=== PATIENT | female | born 1945 | race Hispanic/Latino ===

== ENCOUNTER 2019-11-03 18:39 | Emergency (ER) | payer MEDICARE, OTHER ==
[~2019-11-03] VITALS: Ht 162.6 cm; Wt 97.5 kg
[~2019-11-03 18:39] MED LIST: Aspirin PO; ENALAPRIL PO; HEMOCYTE PLUS1 EACH PO; HYDROCHLOROTHIA25 MG PO; LEXAPRO10 MG PO; NORCO 7.5-3251 EACH PO; SULFASALAZINE500 MG PO
--- OUTSIDE RECORDS SUMMARY | 2019-11-03 18:43 | XMS REPORT ---
[facility] Address Unknown Phone Unavailable Care Team Providers Care Mineral Surveyor Name Role Phone Unavailable Unavailable Payers Payer Name Policy Type Policy Number Effective Date Expiration Date Problems This patient has no known problems. Allergies, Adverse Reactions, Alerts Allergy Name Allergy Type Status Severity Reaction(s) Onset Date Inactive Date Treating Clinician Comments No Known Allergies DA Active U 2013-02-19 00:00:00 Medications This patient has no known medications. Results Test Description Test Time Test Comments Text Results Atomic Results Result Comments FECES OVA PARASITES 2019-01-03 14:11:00 CONCENTRATE RESULT (test code=CONC) Final report () These results were obtained using wet preparation(s) andtrichrome stained smear. This test does not include testingfor Cryptosporidium parvum, Cyclospora, or Microsporidia. TRICHROME RESULT (test code=TRIC) [id number] GIARDIA [id number] 14:11:00* Test Item Value Reference Range Comments AG GIARDIA FECES (test code=GIARDAG) Negative Negative Performed At: [facility] [address] [id number] Kyle L MD Ph:[phone] 1141FECES OVA [id number] 14:11:00* Test Item Value Reference Range Comments CONCENTRATE RESULT (test code=CONC) Final report () These results were obtained using wet preparation(s) andtrichrome stained smear. This test does not include testingfor Cryptosporidium parvum, Cyclospora, or Microsporidia. TRICHROME RESULT (test code=TRIC) () No ova, cysts, or parasites seen.One negative specimen does not rule out the possibility ofa parasitic infection.Performed At: [facility] [address] [id number] Dupree MD Ph:[phone] 1141AG GIARDIA [id number] 14:11:00* Test Item Value Reference Range Comments AG GIARDIA FECES (test code=GIARDAG) Negative Negative Performed At: [facility] [id number] Dupree MD Ph:[phone] 1141FECES OVA [id number] 16:09:00* Test Item Value Reference Range Comments CONCENTRATE RESULT (test code=CONC) TRICHROME RESULT (test code=TRIC) 1141AG GIARDIA [id number] 16:09:00* Test Item Value Reference Range Comments AG GIARDIA FECES (test code=GIARDAG) Negative Negative Performed At: [facility] [address] [id number] Dupree MD Ph:[phone] 1141
[2019-11-03] MEDS ORDERED: KETOROLAC TROMETHAMINE 30 MG/ML VIAL IM STA (19:49)
[2019-11-03 21:17] VITALS: BP 148/77
== END 2019-11-03 21:18 | disposition home or self-care (01) ==
LOC: ER 18:39
DX: M54.32 Sciatica, left side (principal); I10 Essential (primary) hypertension; Z96.641 Presence of right artificial hip joint
CPT/HCPCS: 96372; 99282; J1885

== ENCOUNTER 2019-12-27 11:57 | Emergency (ER) | payer MEDICARE ==
[~2019-12-27] VITALS: Ht 162.6 cm; Wt 97.5 kg
--- OUTSIDE RECORDS SUMMARY | 2019-12-27 12:01 | XMS REPORT | Continuity of Care Document ---
Author Author [facility] t Organization [facility] Address [address] [place] [address] Phone Unavailable Care Team Providers Care Education Professor Name Role Phone Unavailable Unavailable Payers Payer Name Policy Type Policy Number Effective Date Expiration Date S ource Problems This patient has no known problems. Allergies, Adverse Reactions, Alerts Allergy Name Allergy Type Status Severity Reaction(s) Onset Date Inacti ve Date Treating Clinician Comments Source No Known Allergies DA Active U 2013-02-19 00:00:00 [facility] Medications This patient has no known medications. Procedures This patient has no known procedures. Results Test Description Test Time Test Comments Results Result Comments Source FECES OVA PARASITES 2019-01-03 14:11:00 Test Item CONCENTRATE RESULT (test code = CONC) Final report () These results were obtained using wet preparation(s) andtrichrome stained smear. This test does not include testingfor Cryptosporidium parvum, Cyclospora, or Microsporidia. TRICHROME RESULT (test code = TRIC) [id number] GIARDIA [id number] 14:11:00* Test Item Value Reference Range Interpretation Comments AG GIARDIA FECES (test code = GIARDAG) Negative Negative Performed At: [facility] [address] [id number] Cody Dupree MD Ph:[phone] 1141FECES OVA [id number] 14:11:00* Test Item Value Reference Range Interpretation Comments CONCENTRATE RESULT (test code = CONC) Final report () These results were obtained using wet preparation(s) andtrichrome stained smear. This test does not include testingfor Cryptosporidium parvum, Cyclospora, or Microsporidia. TRICHROME RESULT (test code = TRIC) () No ova, cysts, or parasites seen.One negative specimen does not rule out the possibility ofa parasitic infection.Performed At: [address] [id number] Dupree MD Ph:[phone] 1141AG GIARDIA [id number] 14:11:00* Test Item Value Reference Range Interpretation Comments AG GIARDIA FECES (test code = GIARDAG) Negative Negative Performed At: [address] [id number] Dupree MD Ph:[phone] 1141FECES OVA [id number] 16:09:00* Test Item Value Reference Range Interpretation Comments CONCENTRATE RESULT (test code = CONC) TRICHROME RESULT (test code = TRIC) 1141AG GIARDIA [id number] 16:09:00* Test Item Value Reference Range Interpretation Comments AG GIARDIA FECES (test code = GIARDAG) Negative Negative Performed At: [address] [id number] Dupree MD Ph:[phone] 1141
--- NOTE | 2019-12-27 12:37 | Emergency Department Note ---
History of Present Illnes History of Present Illness Chief Complaint: Chest Pain History of Present Illness This is a 74 year old female arrives the ED with an abnormal EKG, patie nt denies any complaints. Patient was getting a preop testing done for procedure. Patient states she wishes to go home has no chest pain has no shortness of breath has no complaints and does not understand why she was brought to the emergency department Historian: Patient Arrival Mode: Car Past Medical/Family History Physician Review I have reviewed the patient's past medical and family history. Any updates have been documented here. Past Medical History Recent Fever: No Clinical Suspicion of Infectio: No New/Unexplained Change in Ment: No Past Medical History: Hypertension, Depression, Osteoarthritis Past Surgical History: Appendectomy, Hysterectomy, Hip Replacement Other Surgery: RIGHT HIP REPLACEMENT Social History Smoking Cessation: Never Smoker Counseling Performed: No Alcohol Use: None Any Illegal Drug Use: No TB Exposure/Symptoms: No Physically hurt or threatened: No Family History Family history of heart diseas: No Other Last Tetanus: UNKNOWN Any Pre-Existing Lines (PICC,: No Is patient up to date on immun: Yes Last Flu: OOD Last Pneumovax: NA Review of Systems Review of Systems Constitutional: no symptoms EENTM: no symptoms Cardiovascular: no symptoms Respiratory: no symptoms Gastrointestinal: no symptoms Genitourinary: no symptoms Musculoskeletal: no symptoms Neurological: no symptoms Psychological: no symptoms Endocrine: no symptoms Hematological/Lymphatic: no symptoms Review of other systems All other systems reviewed and negative. Physical Exam Related Data Allergies: Coded Allergies: No Known Allergies (Unverified , 11/03/19) Triage Vital Signs Vital Signs Date Time Temp Pulse Resp B/P (MAP) Pulse Ox O2 Delivery O2 Flow Rate FiO2 12/27/19 12:13 96.1 83 16 151/92 96 Vital signs reviewed: Yes Physical Exam CONSTITUTIONAL HENT EYES NECK PULMONARY CARDIOVASCULAR GASTROINTESTINAL GENITOURINARY SKIN MUSCULOSKELETAL NEUROLOGICAL PSYCHOLOGICAL Procedures 12 Lead ECG Interpretation Prior ENGINE DESIGNER tracings: reviewed Rhythm: sinus rhythm Rate: normal Conduction: right bundle branch block ST segments normal: No (T wave inversions in the inferior lateral leads unchanged from prior KG) Clinical Impression: non-specific ECG Critical Care Time Subsequent provider I assumed direction of critical care for this patient from another provider of my specialty. Assessment & Plan Assessment & Plan Final Impression: (1) ABNORMAL ELECTROCARDIOGRAM [ECG] [EKG] Assessment & Plan EKG unchanged from prior, followed with outpatient PCP for further workup Depart Disposition: HOME, SELF-CARE Last Vital Signs Date Time Temp Pulse Resp B/P (MAP) Pulse Ox O2 Delivery O2 Flow Rate FiO2 12/27/19 12:13 96.1 83 16 151/92 96 Home Meds Active Scripts [Aspirin] 325 MG TAB No Conflict Check, 325 MG PO BIDWM for 21 Days Prov:JANESSA CUMMINS 04/05/16 Reported Medications Fe Fumarate/Fa/Mv, Min Comb#15 (HEMOCYTE PLUS CAPSULE) 1 Each Capsule, 1 TAB PO DAILY 04/06/16 Hydrocodone Bit/Acetaminophen (NORCO 7.5-325 TABLET) 1 Each Tablet, 1 EA PO Q4HR PRN for PAIN, TAB 04/06/16 Sulfasalazine (SULFASALAZINE) 500 Mg Tab, 500 MG PO Q6H, #30 TAB 02/05/16 Escitalopram Oxalate (LEXAPRO) 10 Mg Tablet, 10 MG PO DAILY, #30 TAB 02/05/16 [Enalapril] No Conflict Check, 20 MG PO DAILY 02/05/16 Hydrochlorothiazide (HYDROCHLOROTHIAZIDE) 25 Mg Tablet, 12.5 MG PO DAILY, #30 TAB 02/05/16 VALERIA WOLF DO Dec 27, 2019 12:21
== END 2019-12-27 12:45 | disposition home or self-care (01) ==
LOC: ER 11:57
DX: R94.31 Abnormal electrocardiogram [ECG] [EKG] (principal); I10 Essential (primary) hypertension; F32.9 Major depressive disorder, single episode, unspecified; Z96.641 Presence of right artificial hip joint
CPT/HCPCS: 93005; 99282

== ENCOUNTER 2020-01-14 07:25 | Observation (INO) | payer MEDICARE, OTHER ==
--- NOTE | 2020-01-10 14:49 | Diagnostic Imaging Report ---
EXAMINATION: CHEST 2 VIEWS INDICATION: Pre-operative COMPARISON: None FINDINGS: LINES/TUBES:None LUNGS:The lungs are well-inflated. No focal consolidation or pulmonary edema. PLEURA:No pleural effusion or pneumothorax. MEDIASTINUM:The cardiomediastinal silhouette appears normal in size and shape. BONES/SOFT TISSUES:No acute osseous injury. ABDOMEN:No free air under the diaphragm. IMPRESSION: No focal pneumonia or pulmonary edema. Signed by: Randa Bravo MD on 01/10/2020 2:45 PM
[2020-01-10 15:02] LABS: BASOPHILS # (AUTO) 0.1 (0.0-0.1); BASOPHILS % 0.8 % (0.0-1.0); EOSINOPHILS # (AUTO) 0.2 (0.0-0.4); EOSINOPHILS % 1.4 % (0.0-6.0); HEMATOCRIT 31.9 % (34.2-44.1); HEMOGLOBIN 10.5 g/dL (12.0-16.0); LYMPHOCYTES # (AUTO) 1.7 (1.0-3.2); LYMPHOCYTES % 14.9 % (18.0-39.1); MEAN CORPUSCULAR HEMOGLOBIN 30.2 pg (28-32); MEAN CORPUSCULAR HGB CONC 32.9 g/dL (31-35); MEAN CORPUSCULAR VOLUME 91.7 fL (81-99); MONOCYTES # (AUTO) 0.8 (0.2-0.8); MONOCYTES % 7.3 % (4.4-11.3); NEUTROPHILS # (AUTO) 8.5 (2.1-6.9); NEUTROPHILS % 74.9 % (38.7-80.0); PLATELET COUNT 318 x10e3/uL (140-360); RED BLOOD COUNT 3.48 x10e6/uL (3.6-5.1); RED CELL DISTRIBUTION WIDTH 13.3 % (11.7-14.4)
[2020-01-10 16:09] LABS: ANION GAP 11.6 mmol/L (8-16); CALCIUM 8.5 mg/dL (8.4-10.2); CREATININE, SERUM 1.82 mg/dL (0.57-1.11); POTASSIUM 3.6 mmol/L (3.5-5.1)
[~2020-01-14] VITALS: Ht 157.5 cm; Wt 92.1 kg
[~2020-01-14 07:25] MED LIST changes: +HYDROXYCHLOROQ200 MG PO; +LEFLUNOMIDE10 MG PO; +OMEPRAZOLE40 MG PO; +PREDNISONE5 MG PO
[2020-01-14] MEDS ORDERED: ROPIVACAINE 246.25 MG, EPINEPHRINE HCL 1:1000 1ML 0.5 MG, CLONIDINE HCL 0.08 MG, KETORO... INJ ONE ×5 (08:00)
[2020-01-14] MEDS ORDERED: CELECOXIB 200 MG CAP ONE (08:45)
[2020-01-14] MEDS ORDERED: DEXAMETHASONE SOD PHOS 10 MG/1 ML VIAL ONE (08:45)
[2020-01-14] MEDS ORDERED: GABAPENTIN 300 MG CAP ONE (08:46)
[2020-01-14] MEDS ORDERED: CEFAZOLIN SOD 1 GM/NS 50ML 100 ML IV ONE (09:16)
[2020-01-14] MEDS ORDERED: BACITRACIN 50,000 UNIT VIAL ONE (09:47)
[2020-01-14] MEDS ORDERED: VANCOMYCIN HCL 500 MG ONE ×2 (09:48→11:22)
[2020-01-14] MEDS ORDERED: TRANEXAMIC ACID 1,000 MG/10 ML ML ONE (09:49)
[2020-01-14] MEDS ORDERED: SODIUM CHLORIDE 0.9% 500ML 500 ML ONE (09:49)
[2020-01-14] MEDS ORDERED: KETOROLAC TROMETHAMINE 30 MG/ML VIAL IV PRN (12:15)
[2020-01-14] MEDS ORDERED: DOCUSATE SODIUM 100 MG CAP PO PRN (12:15)
[2020-01-14] MEDS ORDERED: ZOLPIDEM TARTRATE 5 MG TAB PO PRN (12:15)
[2020-01-14] MEDS ORDERED: HYDROCODONE/APAP 5MG-325MG TAB PO PRN (12:15)
[2020-01-14] MEDS ORDERED: DIPHENHYDRAMINE HCL INJ 50 MG/ML VIAL IV PRN (12:15)
[2020-01-14] MEDS ORDERED: ONDANSETRON HCL INJ 2MG/ML 2ML 2 MG/ML VIAL IV PRN (12:15)
[2020-01-14] MEDS ORDERED: ACETAMINOPHEN 650 MG SUPP PR PRN (12:15)
[2020-01-14] MEDS ORDERED: MEPERIDINE HCL INJ 25 MG/ML VIAL ONE (12:45)
--- NOTE | 2020-01-14 12:59 | Diagnostic Imaging Report ---
EXAMINATION: PELVIS AP 1-2 VIEWS INDICATION: Postoperative COMPARISON: Pelvic radiographs 04/04/2016 FINDINGS: AP view of the pelvis demonstrates postoperative findings of interval left total hip replacement. Alignment appears anatomic. Hardware appears intact. Surgical skin horace over the upper lateral left thigh. IMPRESSION: Anatomic alignment status post left total hip replacement. Signed by: Rnada Bravo MD on 01/14/2020 12:56 PM
--- NOTE | 2020-01-14 13:00 | NUR ---
RECEIVED PATIENT FROM PACU. PATIENT A/O X3, EVEN RESPIRATIONS ON RA. LUNG SOUNDS CLEAR. LEFT HIP DRESSING C/D/I. ABDUCTOR PILLOW IN PLACE. RIGHT SU HOSE IN PLACE AND FOOT PUMPS BILATERAL. PATIENT DENIES PAIN AT THIS TIME. ORIENTED PATIENT TO ROOM AND CALL LIGHT. BED LOW, WHEELS LOCKED, SIDE RAILS X2. CALL LIGHT IN REACH WILL CONTINUE TO MONITOR PATIENT.
[2020-01-14 13:16] VITALS: BP 94/79
[2020-01-14 13:39] VITALS: BP 94/79
[2020-01-14 13:45] VITALS: BP 94/79
[2020-01-14] MEDS ORDERED: MIDAZOLAM HCL 2 MG/2 ML VIAL ONE (14:13)
[2020-01-14] MEDS ORDERED: FENTANYL CITRATE/PF 100MCG/2 ML INJ ONE (14:13)
[2020-01-14] MEDS: SODIUM CHLORIDE 0.9% 1000ML 1,000 ML IV SCH ×2 (14:46→23:57)
--- NOTE | 2020-01-14 14:48 | NUR ---
DR SEWELL OFFICE PREARRANGED FOLLOWING DISCHARGE PLAN OF: HOME [address], [facility] WITH SIGNATURE CONFIRMED WITH AMANDA [phone] PT REFUSED DME STATES HAS ALL FROM PRIOR SURGERY. LEOBARDO SIGNED AND ON CHART COPY LEFT WITH PATIENT GAVE CARD FOR QUESTIONS AND OR CONCERNS. `
--- NOTE | 2020-01-14 16:10 | NUR ---
PATIENT HAS VOIDED SINCE SURGERY.
[2020-01-14 16:20] VITALS: BP 117/61
[2020-01-14] MEDS: CELECOXIB 200 MG CAP PO SCH (16:48)
[2020-01-14] MEDS: CEFAZOLIN SOD 1 GM/NS 50ML 50 ML IV SCH (16:48)
[2020-01-14] MEDS: HYDROCODONE/APAP 7.5MG-325MG 1 EA TAB PO PRN ×2 (17:47→21:43)
[2020-01-14] MEDS ORDERED: ACETAMINOPHEN 1000 MG/100 ML IV ONE (18:39)
[2020-01-14] MEDS ORDERED: LIDOCAINE HCL 2% LOCAL INJ 5 ML SDV VIAL INJ ONE (18:39)
[2020-01-14] MEDS ORDERED: SEVOFLURANE INHAL SOLN 250 ML PEN BTL ONE (18:39)
[2020-01-14] MEDS ORDERED: PROPOFOL IV EMULSION 10 MG/ML 20 ML VIAL ONE (18:39)
[2020-01-14] MEDS ORDERED: ONDANSETRON HCL INJ 2MG/ML 2ML 2 MG/ML VIAL ONE (18:39)
[2020-01-14] MEDS ORDERED: BUPIVACAINE HCL 0.5% INJ 30 ML VIAL INJ ONE (18:56)
[2020-01-14 20:00] VITALS: BP 125/63
[2020-01-14] MEDS: ASPIRIN 325 MG TAB PO SCH (20:38)
[2020-01-15] VITALS: BP 137/71
[2020-01-15] MEDS: CEFAZOLIN SOD 1 GM/NS 50ML 50 ML IV SCH ×2 (01:35→09:04)
[2020-01-15 04:00] VITALS: BP 135/73
[2020-01-15 05:26] LABS: HEMATOCRIT 26.1 % (34.2-44.1); HEMOGLOBIN 8.4 g/dL (12.0-16.0)
[2020-01-15] MEDS: HYDROCODONE/APAP 7.5MG-325MG 1 EA TAB PO PRN (06:34)
--- NOTE | 2020-01-15 07:05 | NUR ---
REPORT GIVEN TO [facility] NURSE. AAOX3. RESTING IN BED. NO SIGNS OF IV INFILTRATION. BED LOCKED AND IN LOW POSITION. CALL LIGHT WITHIN REACH.
[2020-01-15 07:25] VITALS: BP 133/72
--- NOTE | 2020-01-15 07:30 | NUR ---
PT UP IN BED NO DISTRESS NOTED,PAIN LEVEL 3
--- NOTE | 2020-01-15 08:12 | NUR ---
[facility] NOT IN NETWORK-[facility] WILL COVER THE REFERRAL
--- NOTE | 2020-01-15 08:15 | NUR ---
PHYSICAL THERAPY HERE AMBULATED PT IN [place] WITH WALKER
[2020-01-15 08:53] VITALS: BP 133/72
[2020-01-15] MEDS: ASPIRIN 325 MG TAB PO SCH (08:54)
[2020-01-15] MEDS: CELECOXIB 200 MG CAP PO SCH (08:54)
[2020-01-15] MEDS ORDERED: ONDANSETRON HCL 4 MG ORAL DISINTEGRATING TAB PO PRN (09:00)
[2020-01-15] MEDS ORDERED: PREDNISONE 5 MG TAB PO SCH (09:00)
[2020-01-15] MEDS ORDERED: HYDROXYCHLOROQUINE SULFATE 200 MG TAB PO SCH (09:00)
[2020-01-15] MEDS ORDERED: HYDROCHLOROTHIAZIDE 25 MG TAB PO SCH (09:00)
[2020-01-15] MEDS ORDERED: PANTOPRAZOLE SOD 40 MG TABEC PO SCH (09:00)
[2020-01-15] MEDS ORDERED: ESCITALOPRAM OXALATE 10 MG TAB PO SCH (09:00)
--- NOTE | 2020-01-15 09:20 | Consultation ---
DATE OF CONSULTATION: 01/14/2020 PRIMARY CARE PHYSICIAN: Allan Grady MD. REASON FOR CONSULTATION: The patient is status post left total knee replacement. HISTORY OF PRESENT ILLNESS: The patient is a 74-year-old female with chronic medical problems including hypertension, osteoarthritis, major depression, rheumatoid arthritis, and multiple joint pain. The patient is now status post left total hip replacement. The patient is otherwise stable. She had multiple surgical interventions previously. The patient has left carpal tunnel surgery. She also has left radius bone surgery with ulnar autograft, otherwise unremarkable. The patient was having increase in both hip pain, worse on the left compared to the right. She is status post surgery now and she is stable. The patient is ambulatory. No chest pain or shortness of breath. PAST MEDICAL HISTORY: Hypertension, osteoarthritis, rheumatoid arthritis, major depression, anxiety disorder, history of kidney stone removal. PAST SURGICAL HISTORY: Tubal ligation, left radius surgery, bone graft. Tonsillectomy, hysterectomy, appendectomy, renal stone removal. Left breast tumor benign, so that were removed. Left wrist carpal tunnel surgery. She also has right hip replacement. SOCIAL HISTORY: The patient does not smoke or use alcohol. No regular drug. ALLERGIES: NO KNOWN ALLERGIES. HOME MEDICATIONS: The patient is on: 1. Lexapro. 2. HCTZ. 3. Plaquenil. 4. Arava. 5. Omeprazole. 6. Prednisone. 7. Enalapril. PHYSICAL EXAMINATION: VITAL SIGNS: Temperature is 98, blood pressure 133/73, pulse rate 60, respirations 18. GENERAL: The patient is not in acute distress, awake. HEENT: Normocephalic and atraumatic. Anicteric. NECK: Supple grossly. PULMONARY: Clear. CARDIOVASCULAR: Regular rhythm. ABDOMEN: Soft. EXTREMITIES: No cyanosis or edema. Status post left hip replacement NEUROLOGIC: No focal deficit. LABORATORY DATA: Sodium is 133, potassium 3.6, chloride 101, bicarb 24, BUN 24, creatinine 1.6, glucose 90. WBC 11, hemoglobin 8.4, hematocrit 26, platelets is 318. IMPRESSION: 1. Status post total left hip replacement. 2. Multiple chronic baseline problems including rheumatoid arthritis, on chronic prednisone. Hypertension and depression, which are stable. PLAN: Continue with postop care. Discontinue IV fluids. Pain control. PT/OT. The patient should be able to go home within 24-48 hours. MD YUMIKO Lees/KRISS /[id number]
--- NOTE | 2020-01-15 11:11 | Operative Report ---
DATE OF PROCEDURE: 01/14/2020 SURGEON: Robert Vigil MD COOK PICKLED MEAT: Jeffry Norwood PA-C PREOPERATIVE DIAGNOSIS: Osteoarthritis, left hip. POSTOPERATIVE DIAGNOSIS: Osteoarthritis, left hip. PROCEDURE: Left total hip arthroplasty. INDICATIONS: The patient is a 74-year-old lady who has advanced osteoarthritis of her left hip. She has failed conservative management and would like to proceed with a left total hip replacement. She has been through a right total hip replacement in the past and is familiar with the process. The risks and benefits have been reviewed. The hospital stay and implants have been discussed. All of her questions have been answered. She states she understands and wishes to proceed. PROCEDURE IN DETAIL: The patient was brought to the operating room and placed under general anesthetic. She received an additional spinal anesthetic as well as prophylactic antibiotics and tranexamic acid. She was positioned in the right lateral decubitus position. Her left hip was prepped and draped in a sterile manner. A preoperative time-out was performed. A posterior approach was made to the left hip. Hemostasis was obtained with electrocautery. A deep self-retaining Charnley retractor was placed. The posterior capsule was carefully exposed. Care was taken to avoid injury to the sciatic nerve. Additional hemostasis was obtained around the posterior capsule with electrocautery. A portion of the short external rotators and the posterior capsule were released. The hip was dislocated. Complete loss of articular cartilage was noted. An oscillating saw was used to resect the femoral head. Acetabular retractors were placed. Large osteochondral fragments were noted to be free-floating in the socket. Labral remnants were excised with a long-handled knife. A Joceline [employer] system was used throughout the case. The socket was carefully reamed up to 53 mm. This accomplished bleeding hemispherical cancellous bone. A 54 mm outer diameter OsseoTi socket was impacted into place. Fixation was augmented with two cancellous screws placed into the ilium. The hip was thoroughly irrigated with a shower tip pulsatile lavage on several different occasions while preparing the socket. Additional irrigation with a spray mixture of diluted vancomycin and polymyxin spray was used. A highly cross-linked polyethylene liner with a 36 mm inner diameter was then seated into place. Care was taken to make sure that there was no evidence of soft tissue interposition. The socket was then packed with a moistly soaked lap sponge. Attention was directed towards the proximal femur. A box cutting osteotome and taper pin reamer were used to establish entry to the femoral canal. The Taperloc broaches were impacted. A size 11 stem had good canal fill and rotational stability for trial reductions. A standard neck and 36 mm head provided appropriate soft tissue balancing, religious of limb length and stability throughout a full arc of motion. The trial implants were removed. A 100 mL premixed pericapsular KELSY injection was placed into the surrounding soft tissue while the implants were opened. The Taperloc stem was seated into place. A standard neck and 36 mm ceramic head were seated onto a clean and dry stem. A final reduction was performed. The posterior capsule was well preserved and was carefully repaired with interrupted #2 Ethibond. The short external rotators were repaired. A 500 mg of vancomycin powder was sprinkled into the joint. The fascia was closed with interrupted #2 Ethibond. Of note, the abductor musculature insertion on the greater trochanter was chronically torn. Attempts were made to repair this, but it was too contracted. The skin was closed with subcuticular Vicryl and horace. A sterile Aquacel bandage was applied. The patient was returned to the supine position. She was extubated and transported to the recovery room in stable condition. Estimated blood loss was 100 mL. At the end of the procedure, all needle and sponge counts were correct. Robert Vigil MD DR/KRISS /[id number]
[2020-01-15] MEDS ORDERED: ACETAMINOPHEN 1000 MG/100 ML IV PRN (12:15)
== END 2020-01-15 11:45 | disposition home health service (06) ==
LOC: OR 07:25 → PACU V 12:06 → MED/SURG 13:14
PROVIDERS: ADMIT Specialist; ATTEND Specialist
DX: M16.0 Bilateral primary osteoarthritis of hip (principal); M17.11 Unilateral primary osteoarthritis, right knee; F32.9 Major depressive disorder, single episode, unspecified; I10 Essential (primary) hypertension; M06.9 Rheumatoid arthritis, unspecified; Z01.810 Encounter for preprocedural cardiovascular examination; Z01.812 Encounter for preprocedural laboratory examination; Z11.59 Encounter for screening for other viral diseases
CPT/HCPCS: 27130; 36415 ×2; 71046; 72170; 80048; 85014; 85018; 85025; 86850; 86900; 86920; 87635; 97116; 97139; 97161; 97530 ×2; C1713 ×2; C1734; C1776; G0378 ×2; J0131; J0171; J0690 ×2; J1100; J1885; J2001; J2175; J2250; J2405; J2704; J2795; J3010; J3370; J7030; J7040; J7512; Q0162; S0164; U0002

== ENCOUNTER 2020-03-12 10:36 | Inpatient (IN) | payer MEDICARE, OTHER ==
[~2020-03-12] VITALS: Ht 157.5 cm; Wt 88.9 kg
--- NOTE | 2020-03-12 11:26 | Emergency Department Note ---
History of Present Illnes History of Present Illness Chief Complaint: General Medicine Complaints History of Present Illness This is a 74 year old female presents to the ED generalized weakness . Historian: Patient Arrival Mode: Car History limited by: language barrier Onset (how long ago): week(s) Radiation: Reports non-radiation Severity: moderate Onset quality: gradual Duration (how long): week(s) Timing of current episode: constant Progression: unchanged Chronicity: new Context: Reports recent illness Relieving factors: none Exacerbating factors: none Associated symptoms: Reports weakness Treatments prior to arrival: none Past Medical/Family History Physician Review I have reviewed the patient's past medical and family history. Any updates have been documented here. Past Medical History Recent Fever: No Clinical Suspicion of Infectio: No New/Unexplained Change in Ment: No Past Medical History: Hypertension, Depression, GERD Past Surgical History: Appendectomy, Hysterectomy, Hip Replacement Other Surgery: LEFT WRIST Social History Smoking Cessation: Never Smoker Alcohol Use: None Any Illegal Drug Use: No Other Last Tetanus: UNKNOWN Review of Systems Review of Systems Constitutional: Reports weakness EENTM: Reports no symptoms Cardiovascular: Reports no symptoms Respiratory: Reports no symptoms Gastrointestinal: Reports no symptoms Genitourinary: Reports no symptoms Musculoskeletal: Reports no symptoms Integumentary: Reports no symptoms Neurological: Reports no symptoms Psychological: Reports no symptoms Endocrine: Reports no symptoms Hematological/Lymphatic: Reports no symptoms Physical Exam Related Data Allergies: Coded Allergies: No Known Allergies (Unverified , 11/03/19) Triage Vital Signs Vital Signs Date Time Temp Pulse Resp B/P (MAP) Pulse Ox O2 Delivery O2 Flow Rate FiO2 03/12/20 10:50 97.7 77 24 114/73 100 Room Air Vital signs reviewed: Yes Physical Exam CONSTITUTIONAL Constitutional: Present well-developed, Present well-nourished HENT HENT: Present normocephalic, Present atraumatic, Present oropharynx clear/moist, Present nose normal HENT L/R: Present left ext ear normal, Present right ext ear normal EYES Eyes: Reports PERRL, Reports conjunctivae normal NECK Neck: Present ROM normal PULMONARY Pulmonary: Present effort normal, Present breath sounds normal CARDIOVASCULAR Cardiovascular: Present regular rhythm, Present heart sounds normal, Present capillary refill normal, Present normal rate GASTROINTESTINAL Abdominal: Present soft, Present nontender, Present bowel sounds normal GENITOURINARY Genitourinary: Present exam deferred SKIN Skin: Present warm, Present dry MUSCULOSKELETAL Musculoskeletal: Present ROM normal NEUROLOGICAL Neurological: Present alert, Present oriented x 3, Present no gross motor or sensory deficits PSYCHOLOGICAL Psychological: Present mood/affect normal, Present judgement normal Results Laboratory Lab results reviewed: Yes Imaging Imaging results reviewed: Yes Impressions [facility] [address] [address] Patient Name: CHIRAG MCPHERSON MR #: [id number] : 1945 Age/Sex: 74/F Req #: [id number] Adm Physician: CHANNING PULLIAM MD Ordered by: GIUSEPPE PULLIAM DO Report #: [id number] Location: [facility] Room/Bed: [facility] Procedure: [id number] CT/CT ABDOMEN/PELVIS WO Exam Date: 03/12/20 Exam Time: 1430 REPORT STATUS: Signed EXAM: CT Abdomen and Pelvis WITHOUT intravenous contrast INDICATION: Left flank pain COMPARISON: None. TECHNIQUE: Abdomen and pelvis were scanned utilizing a multidetector helical scanner from the lung base to the pubic symphysis without administration of IV contrast. Coronal and sagittal reformations were obtained. Routine technique was performed. IV CONTRAST: None ORAL CONTRAST: None COMPLICATIONS: None RADIATION DOSE: Total DLP: 835 mGy*cm Dose modulation, iterative reconstruction, and/or weight based adjustment of the mA/kV was utilized to reduce the radiation dose to as low as reasonably achievable. FINDINGS: LOWER THORAX: Basilar scarring is noted. HEPATOBILIARY: No focal hepatic lesions. No biliary ductal dilatation. The gallbladder appears unremarkable. SPLEEN: No splenomegaly. PANCREAS: No focal masses or ductal dilatation. ADRENALS: No adrenal nodules. KIDNEYS/URETERS: Negative for hydronephrosis or perinephric drainable fluid collection. There is a hypodense left upper lesion with internal fluid density of approximately 5 Hounsfield units measuring up to 2.5 cm consistent with a cortical cyst. Adjacent to this cyst there is a 2 mm interpolar calcification which could relate to a calcification adjacent to the cyst versus nonobstructing calculus. Otherwise negative for calculus. 7 cm hypodense lesion within the medial left lower pole is indeterminate although statistically also related to a cyst. Ureters are not dilated. Bilateral perinephric stranding is nonspecific. PELVIC ORGANS/BLADDER: Limited evaluation due to significant streak artifact from bilateral hip prostheses. Bladder is not well visualized. Uterus appears to be surgically absent. PERITONEUM / RETROPERITONEUM: No free air or fluid. Small fat-containing umbilical hernia is noted. LYMPH NODES: No lymphadenopathy. VESSELS: Negative for abdominal aortic aneurysm. Scattered atherosclerotic changes of the infrarenal abdominal aorta are noted. GI TRACT: Bowel loops are suboptimally evaluated due to lack of IV and oral contrast. No surrounding inflammatory changes are identified. Appendix is not visualized and may be surgically absent or significantly decompressed. No surrounding inflammatory changes are noted in the region. Distal colon is decompressed limiting evaluation. Rectum is obscured by significant streak artifact. Stomach is decompressed. BONES AND SOFT TISSUES: Negative for acute osseous abnormality. Advanced multilevel degenerative changes of the lumbar spine are noted. Bilateral hip prostheses are noted in proper alignment without evidence of proximal hardware malfunction. Pubic symphysis is not widened. IMPRESSION: Limited lack of IV and oral contrast. In addition limited evaluation of the pelvis due to significant streak artifact bilateral hip arthroplasties. 1. Focal 2 mm left interpolar nonobstructing calculus versus calcification of an adjacent 2.5 cm cortical cyst. Negative for hydronephrosis. Bladder is not well visualized. 2. Bilateral perinephric stranding is noted, likely due to scarring or chronic changes however given lack of comparison imaging acute infectious process is difficult to exclude. Correlate with urinalysis if clinically indicated. Signed by: Paulo Samaniego MD on 03/12/2020 3:07 PM Dictated By: PAULO SAMANIEGO MD [id number] Transcribed By: NUNU on 03/12/20 1503 COPY TO: [place]USEPPE [place]IAM [place] [address] Patient Name: CHIRAG MCPHERSON MR #: [id number] : 1945 Age/Sex: 74/F Req #: [id number] Adm Physician: Ordered by: GIUSEPPE PULLIAM DO Report #: [id number] Location: ER Room/Bed: Procedure: DX/CHEST SINGLE (PORTABLE) Exam Date: Exam Time: REPORT STATUS: Signed TECHNIQUE: Frontal view of the chest. INDICATION: ^dizziness COMPARISON: 01/10/2020 DISCUSSION: Limited evaluation due to portable technique. Lines and hardware: None Heart and mediastinum: Stable mild cardiac Shonda and central vascular congestion. Lungs and pleura: Negative for focal consolidation, pleural effusion or pneumothorax. Prominent vascular markings are similar to prior exam. Soft tissues and bones: No acute abnormality. Stable advanced degenerative changes of the bilateral shoulder joints and acromio clavicular joints. IMPRESSION: Stable mild cardiomegaly and central vascular congestion which could relate to fluid overload. Negative for effusions. Negative for focal consolidation. Signed by: Paulo Samaniego MD on 03/12/2020 1:11 PM Dictated By: PAULO SAMANIEGO MD [id number] Transcribed By: NUNU on 03/12/20 1311 COPY TO: GIUSEPPE PULLIAM DO~ [address] [address] Patient Name: CHIRAG MCPHERSON MR #: [id number] : 1945 Age/Sex: 74/F Req #: [id number] Adm Physician: Ordered by: GIUSEPPE PULLIAM DO Report #: [id number] Location: ER Room/Bed: Procedure: [id number] CT/CT BRAIN WO Exam Date: Exam Time: REPORT STATUS: Signed EXAMINATION: Head CT HISTORY: 74 year old female with dizziness. COMPARISON: None. TECHNIQUE: Helical axial images of the head were obtained. Reformatted coronal and sagittal images from the axial data. Dose modulation, iterative reconstruction, and/or weight based adjustment of the mA/kV was utilized to reduce the radiation dose to as low as reasonably achievable. Image quality: Motion/streaking artifact limits the evaluation of the skull base and posterior cranial fossa. FINDINGS: Parenchyma: 1. Few scattered white matter hypodensities, most likely nonspecific chronic microvascular ischemic changes, within normal limits for age. Otherwise there are no areas of abnormal density in the brain parenchyma. 2. No mass or hemorrhage. No CT evidence of acute territorial vascular insult. Extra-axial spaces:No abnormal density. No extra-axial fluid collections Brain volume: Normal for age. Ventricles: No hydrocephalus or displacement. Arteries: No density suggestive of thrombus. Dural sinuses: No abnormal density. Foramen magnum: No mass, Chiari malformation, or basilar invagination. Sella: Partially empty, mostly CSF filled. Paranasal/mastoid sinuses: Imaged portions unremarkable. Skull/Scalp: No lytic or blastic lesions. No fractures. IMPRESSION: 1. No acute intracranial hemorrhage or cortical infarcts. 2. Mild chronic microvascular ischemic changes. 3. 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 Signed by: Dr. Mary Kay Loco M.D. on 03/12/2020 12:55 PM Dictated By: MARY KAY LOCO MD 125 Transcribed By: NUNU on 03/12/20 125 COPY TO: GIUSEPPE PULLIAM DO~ Procedures 12 Lead ECG Interpretation ECG Interpretation : ECG: ECG 1 Sleeve Ironer: Interpreted by ED physician Date: Mar 12, 2020 Time: 11:25 Prior ECG tracings: reviewed Rate: normal BPM: 83 Conduction: right bundle branch block ST segments normal: Yes T waves normal: No T wave inversion: V1, V2, V3 T waves flattening: V4, V5, V6 Q waves: V1, V2 Clinical Impression: abnormal ECG Assessment & Plan Medical Decision Making MDM 74 yof presents to the ED for generalized weakness . Diff Dx consideration for COVID-19 infectoin, sepsis, CVA, Pneumonia ,UTI, electrolyte abnormality and abdominal pathology. Plan to admit for low Sodium levels Assessment & Plan Final Impression: (1) Weakness (2) Hyponatremia (3) Renal insufficiency Depart Disposition: ADMITTED Last Vital Signs Date Time Temp Pulse Resp B/P (MAP) Pulse Ox O2 Delivery O2 Flow Rate FiO2 03/12/20 10:50 97.7 77 24 114/73 100 Room Air Home Meds Reported Medications Leflunomide (LEFLUNOMIDE) 10 Mg Tablet, PO DAILY 01/09/20 Prednisone (PREDNISONE) 5 Mg Tablet, 2.5 MG PO DAILY, #30 TAB 01/09/20 Omeprazole (OMEPRAZOLE) 40 Mg Capsule.dr, PO DAILY 01/09/20 Hydroxychloroquine Sulfate (HYDROXYCHLOROQUINE SULFATE) 200 Mg Tablet, PO DAILY 01/09/20 Escitalopram Oxalate (LEXAPRO) 10 Mg Tablet, 20 MG PO DAILY, #30 TAB 02/05/16 [Enalapril] No Conflict Check, 20 MG PO DAILY 02/05/16 Discontinued Reported Medications Hydrochlorothiazide (HYDROCHLOROTHIAZIDE) 25 Mg Tablet, 12.5 MG PO DAILY, #30 TAB 02/05/16 GIUSEPPE PULLIAM DO Mar 12, 2020 11:26
[2020-03-12] MEDS ORDERED: ASPIRIN 81 MG CHEW TAB PO ONE ×2 (11:30→12:45)
[2020-03-12 11:56] LABS: BASOPHILS # (AUTO) 0.1 (0.0-0.1); BASOPHILS % 0.8 % (0.0-1.0); EOSINOPHILS # (AUTO) 0.4 (0.0-0.4); EOSINOPHILS % 4.2 % (0.0-6.0); HEMATOCRIT 29.9 % (34.2-44.1); HEMOGLOBIN 10.5 g/dL (12.0-16.0); LYMPHOCYTES # (AUTO) 1.8 (1.0-3.2); LYMPHOCYTES % 18.2 % (18.0-39.1); MEAN CORPUSCULAR HEMOGLOBIN 29.9 pg (28-32); MEAN CORPUSCULAR HGB CONC 35.1 g/dL (31-35); MEAN CORPUSCULAR VOLUME 85.2 fL (81-99); MONOCYTES # (AUTO) 0.7 (0.2-0.8); MONOCYTES % 7.6 % (4.4-11.3); NEUTROPHILS # (AUTO) 6.7 (2.1-6.9); PLATELET COUNT 350 x10e3/uL (140-360); RED BLOOD COUNT 3.51 x10e6/uL (3.6-5.1); RED CELL DISTRIBUTION WIDTH 13.2 % (11.7-14.4)
[2020-03-12 12:16] LABS: ALBUMIN 3.5 g/dL (3.5-5.0); ALBUMIN/GLOBULIN RATIO 1.2 (0.8-2.0); ANION GAP 17.4 mmol/L (8-16); CALCIUM 8.5 mg/dL (8.4-10.2); CREATININE, SERUM 1.81 mg/dL (0.57-1.11); POTASSIUM 3.4 mmol/L (3.5-5.1)
[2020-03-12 12:23] LABS: CREATINE KINASE MB 6.5 ng/mL (0-5.0)
--- OUTSIDE RECORDS SUMMARY | 2020-03-12 12:25 | XMS REPORT | Continuity of Care Document ---
Author Author [facility] t Organization [facility] Address [address] [place] [address] Phone Unavailable Care Team Providers Care Fuel Cell Technician Name Role Phone MD REESE SHEPPARD PCP JOEY KINCAID Attphys Unavailable JOEY KINCAID Admaubree Unavailable Payers Payer Name Policy Type Policy Number Effective Date Expiration Date S cait [employer] [place] [facility] [id number] 2019 00:00:00 [facility] Cdc Review Covid19 [id number] [facility] Problems This patient has no known problems. Allergies, Adverse Reactions, Alerts Allergy Name Allergy Type Status Severity Reaction(s) Onset Date Inacti ve Date Treating Clinician Comments Source No Known Allergies DA Active U 2013-02-19 00:00:00 [facility] Social History Social Habit Start Date Stop Date Quantity Comments Source Sex Assigned At 1945 00:00:00 1945 00:00:00 Female [facility] Medications Ordered Medication Name Filled Medication Name Start Date Stop Da te Current Medication? Ordering Clinician Indication Dosage Frequency Signature (SIG) Comments Components Source Aspirin Aspirin 2016-04-05 11:25:00 2020-01-09 00:00:00 No 325 Twice Daily With Meals [facility] Enalapril Enalapril Yes 20 Daily [facility] Escitalopram Oxalate (Lexapro) 10 Mg TABLET Escitalopr am Oxalate (Lexapro) 10 Mg TABLET Yes 20 Daily [facility] Hydrochlorothiazide Hydrochlorothiazide Yes 12.5 Daily [facility] Hydroxychloroquine Sulfate Hydroxychloroquine Sulfate Yes Daily [facility] Leflunomide Leflunomide Yes Daily [facility] Omeprazole Omeprazole Yes Daily [facility] Prednisone Prednisone Yes 2.5 Daily [facility] Fe Fumarate/Fa/Mv, Min Comb#15 (Hemocyte Plus Capsule) 1 Each CAPSULE Fe Fumarate/Fa/Mv, Min Comb#15 (Hemocyte Plus Capsule) 1 Each CAPSULE 2020-01-09 00:00:00 No 1 Daily [facility] Hydrocodone Bit/Acetaminophen ([place] 7.5-325 Tablet) 1 Each TABLET Hydrocodone Bit/Acetaminophen ([place] 7.5-325 Tablet) 1 Each TABLET 2019-12-23 8 00:00:00 No 1 Every 4 Hours as needed for Pain [facility] Sulfasalazine Sulfasalazine 2020-01-09 00:00:00 No 50 0 Every 6 Hours [facility] Vital Signs Vital Name Observation Time Observation Value Comments Source Body Temperature 2020-01-15 08:53:00 97.8 [degF] [facility] BMI (Body Mass Index) 2020-01-14 13:38:00 37.1 kg/m2 [facility] Weight 2020-01-14 13:18:00 203 [lb_av] [facility] Weight 2019-12-27 12:13:00 215 [lb_av] [facility] BMI (Body Mass Index) 2019-12-27 12:13:00 36.9 kg/m2 [facility] Procedures Procedure Date / Time Performed Performing Clinician [facility] e X-ray of chest, two views 2020-01-10 00:00:00 [facility] Plan of Care Planned Activity Planned Date Details Comments Source Instructions Post Operative Pain [facility] Encounters Start Date/Time End Date/Time Encounter Type Admission Type Attendi Clinicians Care Facility Care Department Encounter ID Source 2020-01-14 12:06:00 2020-01-15 11:45:00 Discharged Inpatient (obs) 3 JOEY KINCAID [facility] [id number] [facility] 2019-12-27 11:57:00 2019-12-27 12:45:00 Departed Emergency Room [facility] [id number] [facility] 2019-11-03 18:39:00 2019-11-03 21:18:00 Departed Emergency Room [facility] [id number] [facility] Results Test Description Test Time Test Comments Results Result Comments Source Blood hemoglobin measurement (moles/volume) 2020-01-15 04:55 :00 Test Item Hemoglobin (test code = 22486-2) 8.4 12.0-16.0 [facility] blood hematocrit (volume fraction)2020-01-15 04:55:00* Test Item Value Reference Range Interpretation Comments Hematocrit (test code = 4544-3) 26.1 34.2-44.1 [facility] AP 1-2 [id number] 12:55:00 [facility] [address] [address] Patient Name: CHIRAG MCPHERSON MR #: [id number] : 1945 Age/Sex: 74/F Req #: [id number] Adm Physician: JOEY KINCAID MD Ordered by: JOEY KINCAID MD Report #: [id number] Location: PAC[facility] Procedure: [id number] DX/PELVIS AP 1-2 VIEWS Exam Date: 01/14/20 Exam Time: 1234 REPORT STATUS: Signed EXAMINATION: PELVIS AP 1-2 VIEWS INDICATION: Postoperative COMPARISON: Pelvic radiogr aphs 04/04/2016 FINDINGS: AP view of the pelvis demonstrates posto perative findings of interval left total hip replacement. Alignment appears an atomic. Hardware appears intact. Surgical skin horace over the upper lateral left thigh. IMPRESSION: Anatomic alignment status post left total hip re placement. Signed by: Reanna Underwood MD on 01/14/2020 12:56 PM Dictated By: REANNA UNDERWOOD MD 1256 Tra nscribed By: NUNU on 01/14/20 1256 COPY TO: JOEY KINCAID MD Fluoroscopic procedure less than one hour [id number] 15:20:00* Test Item Value Reference Range Interpretation Comments Coronavirus (PCR) (test code = Coronavirus (PCR)) NOT DETECTED NOTD ETECTED SARS-COV-2 (COVID19), HIGHRISK, RT-PCRNegative results do not preclude SARS-CoV- 2 infection and should not be used as the sole basis for patient management deci sions. Negative results must be combined with clinical observations, patient his tory, and epidemiological information. Optimum specimen types and timing for pea k viral levels during infections caused by SARS-CoV-2 have not been determined. Collection of multiple specimens ot types of specimens may be necessary to detec t virus. Improper specimen collection and handling, sequence variability under p rimers/probes, or organism present below the limit of detection may lead to fals e negative results. Positive and negative predictive values of testing are highl y dependent on prevalance. False negative test results are more likely when prev alence is high.The expected result is negative (not detected).The SARS-CoV-2 roverto t is intended for the qualitative detection of nucleic acid from SARS-CoV-2 in n asopharyngeal and oropharyngeal swab samples from patients who meet COVID-19 cli nical and or epidemiological criteria. For lower respiratory tract specimens, th e assay is submitted for authoriztion by FDA under an Emergency Use Authorizatio n (EUA). Testing methodology is real time RT-PCR. If received as separate collec tion devices, nasopharygeal and oropharyngeal specimens are combined for analysi s. Additional specimens may be split to a separate accession for analysi and rep orting as this test includes a single unit of service.Test results must be corre lated with clinical presentation and evaluated in the context of other laborator y and epidemiologic data. Test performance can be affected because the epidemiol ogy and clinical spectrum of infection caused by SARS-CoV-2 is not fully known. For example, the optimum types of specimens to collect and when during the cours e of infection these specimens are most likely to contain detectable viral RNA m ay not be known.This test has not been Food and Drug Administration (FDA) cleare d or approved and has been authorized by FDA under an Emergency Use Authorizatio n (EUA). The test is only authorized for the duration of the declaration that ci rcumstances exist justifying the authorization of emergency use of in vitro diag nostic tests for detection and/or diagnosis of SARS-CoV-2 under section 564(b) o f the Act, 21 U.S.C. section 360bbb-3(b)(1), unless the authorization is termina velma or revoked sooner. [facility] are certified under the C linical Laboratory Improvement Amendments of 1988 (CLIA), 42 U.S.C. section 263a , to perform high complexity tests.Testing performed by [facility] [address] [phone] Director: Carson De La Rosa M.D.CLIA # [id number] [facility] BudaBlood leukocytes automated count (number/volume)2020-01-10 14:47:00* Test Item Value Reference Range Interpretation Comments White Blood Count (test code = 6690-2) 11.30 4.8-10.8 [facility]uda[facility] erythrocytes automated count (number/volume)2020-01-10 14:47:00* Test Item Value Reference Range Interpretation Comments Red Blood Count (test code = 789-8) 3.48 3.6-5.1 [facility] BudaAutomated erythrocyte mean corpuscular [id number] 14:47:00* Test Item Value Reference Range Interpretation Comments Mean Corpuscular Volume (test code = 787-2) 91.7 81-99 [facility]udaAutomated erythrocyte mean corpuscular hemoglobin (mass per erythrocyte)2020-01-10 14:47:00* Test Item Value Reference Range Interpretation Comments Mean Corpuscular Hemoglobin (test code = 785-6) 30.2 28-32 [facility]udaAutomated erythrocyte mean corpuscular hemoglobin concentration measurement (mass/volume)2020-01-10 14:47:00* Test Item Value Reference Range Interpretation Comments Mean Corpuscular Hemoglobin Concent (test code = 786-4) 32.9 31-35 [facility] BudaRDW HomTv-[id number] 14:47:00* Test Item Value Reference Range Interpretation Comments Red Cell Distribution Width (test code = 33409-7) 13.3 11.7 -14.4 [facility]udaAutomated blood platelet count (count/volume)2020-01-10 14:47:00* Test Item Value Reference Range Interpretation Comments Platelet Count (test code = 777-3) 318 140-360 [facility] BudaAutunc health chathamed blood segmented neutrophil count as percentage of total [id number] 14:47:00* Test Item Value Reference Range Interpretation Comments Neutrophils (%) (Auto) (test code = 64554-2) 74.9 38.7-80.0 [facility] BudaAutomated blood lymphocyte count as percentage ot total [id number] 14:47:00* Test Item Value Reference Range Interpretation Comments Lymphocytes (%) (Auto) (test code = 736-9) 14.9 18.0-39.1 [facility] BudaAutomated blood monocyte count as percentage of total zpahrwsqqg6469-14-52 14:47:00* Test Item Value Reference Range Interpretation Comments Monocytes (%) (Auto) (test code = 5905-5) 7.3 4.4-11.3 [facility] BudaAutomated blood eosinophil count as percentage of total uvnoymobql5769-31-15 14:47:00* Test Item Value Reference Range Interpretation Comments Eosinophils (%) (Auto) (test code = 713-8) 1.4 0.0-6.0 [facility] BudaAutomated blood basophil count as percentage of total vmpzfwbzfb2096-82-78 14:47:00* Test Item Value Reference Range Interpretation Comments Basophils (%) (Auto) (test code = 706-2) 0.8 0.0-1.0 [facility] BudaFluoroscopic procedure less than one hour uhuwqzws7567-22-06 14:47:00* Test Item Value Reference Range Interpretation Comments IM GRANULOCYTES % (test code = IM GRANULOCYTES %) 0.7 0.0- 1.0 [facility] BudaAutomated blood neutrophil count 2020-01-10 14:47:00* Test Item Value Reference Range Interpretation Comments Neutrophils # (Auto) (test code = 751-8) 8.5 2.1-6.9 [facility]udaBlood lymphocytes count (number/volume) 2020-01-10 14:47:00* Test Item Value Reference Range Interpretation Comments Lymphocytes # (Auto) (test code = 72435-0) 1.7 1.0-3.2 [facility] BudaBlood monocytes automated count (number/volume)2020-01-10 14:47:00* Test Item Value Reference Range Interpretation Comments Monocytes # (Auto) (test code = 742-7) 0.8 0.2-0.8 [facility] BudaAutomated blood eosinophil count 2020-01-10 14:47:00* Test Item Value Reference Range Interpretation Comments Eosinophils # (Auto) (test code = 711-2) 0.2 0.0-0.4 [facility] BudaAutomated blood basophil count (count/volume)2020-01-10 14:47:00* Test Item Value Reference Range Interpretation Comments Basophils # (Auto) (test code = 704-7) 0.1 0.0-0.1 [facility] BudaFluoroscopic procedure less than one hour [id number] 14:47:00* Test Item Value Reference Range Interpretation Comments Absolute Immature Granulocyte (auto (roverto t code = Absolute Immature Granulocyte (auto) 0.08 0-0.1 [facility] or plasma sodium measurement (moles/volume)2020-01-10 14:47:00* Test Item Value Reference Range Interpretation Comments Sodium Level (test code = 2951-2) 133 136-145 [facility] Hospitalerum or plasma potassium measurement (moles/volume)2020-01-10 14:47:00* Test Item Value Reference Range Interpretation Comments Potassium Level (test code = 2823-3) 3.6 3.5-5.1 [facility] Hospitaler[facility] or plasma chloride measurement (moles/volume)2020-01-10 14:47:00* Test Item Value Reference Range Interpretation Comments Chloride Level (test code = 2075-0) 101 98-107 [facility] Hospitalerum or plasma carbon dioxide, total measurement (moles/volume)2020-01-10 14:47:00* Test Item Value Reference Range Interpretation Comments Carbon Dioxide Level (test code = 2028-9) 24 22-29 [facility] Hospitalerum or plasma anion [id number] 14:47:00* Test Item Value Reference Range Interpretation Comments Anion Gap (test code = 19502-3) 11.6 8-16 [facility] Hospitalerum or plasma urea nitrogen measurement (mass/volume)2020-01-10 14:47:00* Test Item Value Reference Range Interpretation Comments Blood Urea Nitrogen (test code = 3094-0) 24 7-26 [facility] Hospitalerum or plasma creatinine measurement (mass/volume)2020-01-10 14:47:00* Test Item Value Reference Range Interpretation Comments Creatinine (test code = 2160-0) 1.82 0.57-1.11 [facility] Hospitalerum or plasma urea nitrogen/creatinine mass ejikt3008-09-63 14:47:00* Test Item Value Reference Range Interpretation Comments BUN/Creatinine Ratio (test code = 3097-3) 13 6-25 [facility] BudaEstimated glomerular filtration rate (GFR) zvvhsyggjhyvw5772-96-33 14:47:00* Test Item Value Reference Range Interpretation Comments Estimat Glomerular Filtration Rate (test code = 505556945) 27 >60 Ranges were taken from the National Kidney Disease Education Program and the [facility] [employer] literature.Reference ranges:60 or greater: Xxalyj19-25 ( for 3 consecutive months): Chronic kidney disease 15 or less: Kidney failureBaylor Scott & White Medical Center – BudaGlucose azwypgzsixm3041-16-39 14:47:00* Test Item Value Reference Range Interpretation Comments Glucose Level (test code = JHH4637) 90 74-118 [facility] Hospitalerum or plasma calcium measurement (mass/volume)2020-01-10 14:47:00* Test Item Value Reference Range Interpretation Comments Calcium Level (test code = 72030-2) 8.5 8.4-10.2 [facility] BudaCHEST 2 [id number] 14:45:00 [facility] [address] [address] Patient Name: CHIRAG MCPHERSON MR #: [id number] : 1945 Age/Sex: 74/F Req #: [id number] Adm Physician: Ordered by: JOEY KINCAID MD Report #: [id number] Location: OR Room/Bed: Procedure: [id number] DX/CHEST 2 VIEWS Exam Date: 01/10/20 Exam Time: 1415 REPORT STATUS: Signed EXAMINATION: CHEST 2 VIEW S INDICATION: Pre-operative COMPARISON: None FINDINGS: LINES/TUBES:None LUNGS:The lungs are well-inflated. No focal consolidat ion or pulmonary edema. PLEURA:No pleural effusion or pneumothorax. ME DIASTINUM:The cardiomediastinal silhouette appears normal in size and shape. BONES/SOFT TISSUES:No acute osseous injury. ABDOMEN:No free air under the diaphragm. IMPRESSION: No focal pneumonia or pulmonary edema. S igned by: Reanna Underwood MD on 01/10/2020 2:45 PM Dictated By: REANNA UNDERWOOD MD 1445 Transcribed By: HUMBERTO MCGUIRE on 01/10/20 1445 COPY TO: JOEY KINCAID MD FECES OVA [id number] 14:11:00* Test Item Value Reference Range Interpretation Comments CONCENTRATE RESULT (test code = CONC) Final report () These results were obtained using wet preparation(s) andtrichrome stained smear. This test does not include testingfor Cryptosporidium parvum, Cyclospora, or Microsporidia. TRICHROME RESULT (test code = TRIC) 1141AG GIARDIA [id number] 14:11:00* Test Item Value Reference Range Interpretation Comments AG GIARDIA FECES (test code = GIARDAG) Negative Negative Performed At: [address] [id number] Dupree MD Ph:[phone] 1141FECES OVA [id number] 14:11:00* Test Item Value Reference Range Interpretation Comments CONCENTRATE RESULT (test code = CONC) Final report () These results were obtained using wet preparation(s) andtrichrome stained smear. This test does not include testingfor Cryptosporidium parvum, Cyclospora, or Microsporidia. TRICHROME RESULT (test code = TRIC) () No ova, cysts, or parasites seen.One negative specimen does not rule out the possibility ofa parasitic infection.Performed At: [address] [id number] Kyle L MD Ph:[phone] 1141AG GIARDIA [id number] 14:11:00* Test Item Value Reference Range Interpretation Comments AG GIARDIA FECES (test code = GIARDAG) Negative Negative Performed At: [address] [id number] Dupree MD Ph:[phone] 1141FECES OVA [id number] 16:09:00* Test Item Value Reference Range Interpretation Comments CONCENTRATE RESULT (test code = CONC) TRICHROME RESULT (test code = TRIC) 1141AG GIARDIA [id number] 16:09:00* Test Item Value Reference Range Interpretation Comments AG GIARDIA FECES (test code = GIARDAG) Negative Negative Performed At: [facility] [address] [id number] Cody Dupree MD Ph:[phone]
--- NOTE | 2020-03-12 12:58 | Diagnostic Imaging Report ---
EXAMINATION: Head CT HISTORY: 74 year old female with dizziness. COMPARISON: None. TECHNIQUE: Helical axial images of the head were obtained. Reformatted coronal and sagittal images from the axial data. Dose modulation, iterative reconstruction, and/or weight based adjustment of the mA/kV was utilized to reduce the radiation dose to as low as reasonably achievable. Image quality: Motion/streaking artifact limits the evaluation of the skull base and posterior cranial fossa. FINDINGS: Parenchyma: 1. Few scattered white matter hypodensities, most likely nonspecific chronic microvascular ischemic changes, within normal limits for age. Otherwise there are no areas of abnormal density in the brain parenchyma. 2. No mass or hemorrhage. No CT evidence of acute territorial vascular insult. Extra-axial spaces:No abnormal density. No extra-axial fluid collections Brain volume: Normal for age. Ventricles: No hydrocephalus or displacement. Arteries: No density suggestive of thrombus. Dural sinuses: No abnormal density. Foramen magnum: No mass, Chiari malformation, or basilar invagination. Sella: Partially empty, mostly CSF filled. Paranasal/mastoid sinuses: Imaged portions unremarkable. Skull/Scalp: No lytic or blastic lesions. No fractures. IMPRESSION: 1. No acute intracranial hemorrhage or cortical infarcts. 2. Mild chronic microvascular ischemic changes. 3. 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 Signed by: Dr. Ashanti Loco M.D. on 03/12/2020 12:55 PM
--- NOTE | 2020-03-12 13:15 | Diagnostic Imaging Report ---
TECHNIQUE: Frontal view of the chest. INDICATION: ^dizziness COMPARISON: 01/10/2020 DISCUSSION: Limited evaluation due to portable technique. Lines and hardware: None Heart and mediastinum: Stable mild cardiac Shonda and central vascular congestion. Lungs and pleura: Negative for focal consolidation, pleural effusion or pneumothorax. Prominent vascular markings are similar to prior exam. Soft tissues and bones: No acute abnormality. Stable advanced degenerative changes of the bilateral shoulder joints and acromio clavicular joints. IMPRESSION: Stable mild cardiomegaly and central vascular congestion which could relate to fluid overload. Negative for effusions. Negative for focal consolidation. Signed by: Nahum Samaniego MD on 03/12/2020 1:11 PM
--- OUTSIDE RECORDS SUMMARY | 2020-03-12 13:26 | XMS REPORT | Continuity of Care Document ---
Author Author [facility] t Organization [facility] Address 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 Allergies, Adverse Reactions, Alerts Allergy Name Allergy Type Status Severity Reaction(s) Onset Date Inacti ve Date Treating Clinician Comments Source No Known Allergies DA Active U 2013-02-19 00:00:00 [facility] Social History Social Habit Start Date Stop Date Quantity Comments Source Sex Assigned At 1945 00:00:00 1945 00:00:00 Female [facility] Medications Ordered Medication Name Filled Medication Name Start Date Stop Da te Current Medication? Ordering Clinician Indication Dosage Frequency Signature (SIG) Comments Components Source Aspirin Aspirin 2016-04-05 11:25:00 2020-01-09 00:00:00 No 325 Twice Daily With Meals [facility] Enalapril Enalapril Yes 20 Daily [facility] Escitalopram Oxalate (Lexapro) 10 Mg TABLET Escitalopr am Oxalate (Lexapro) 10 Mg TABLET Yes 20 Daily [facility] Hydrochlorothiazide Hydrochlorothiazide Yes 12.5 Daily [facility] Hydroxychloroquine Sulfate Hydroxychloroquine Sulfate Yes Daily [facility] Leflunomide Leflunomide Yes Daily [facility] Omeprazole Omeprazole Yes Daily [facility] Prednisone Prednisone Yes 2.5 Daily [facility] Fe Fumarate/Fa/Mv, Min Comb#15 (Hemocyte Plus Capsule) 1 Each CAPSULE Fe Fumarate/Fa/Mv, Min Comb#15 (Hemocyte Plus Capsule) 1 Each CAPSULE 2020-01-09 00:00:00 No 1 Daily [facility] Hydrocodone Bit/Acetaminophen ([place] 7.5-325 Tablet) 1 Each TABLET Hydrocodone Bit/Acetaminophen ([place] 7.5-325 Tablet) 1 Each TABLET 2019-12-23 8 00:00:00 No 1 Every 4 Hours as needed for Pain [facility] Sulfasalazine Sulfasalazine 2020-01-09 00:00:00 No 50 0 Every 6 Hours [facility] Vital Signs Vital Name Observation Time Observation Value Comments Source Body Temperature 2020-01-15 08:53:00 97.8 [degF] [facility] BMI (Body Mass Index) 2020-01-14 13:38:00 37.1 kg/m2 [facility] Weight 2020-01-14 13:18:00 203 [lb_av] [facility] Weight 2019-12-27 12:13:00 215 [lb_av] [facility] BMI (Body Mass Index) 2019-12-27 12:13:00 36.9 kg/m2 [facility] Procedures Procedure Date / Time Performed Performing Clinician [facility] e X-ray of chest, two views 2020-01-10 00:00:00 [facility] Plan of Care Planned Activity Planned Date Details Comments Source Instructions Post Operative Pain [facility] Encounters Start Date/Time End Date/Time Encounter Type Admission Type [facility] Care Department Encounter ID Source 2020-01-14 12:06:00 2020-01-15 11:45:00 Discharged Inpatient (obs) 3 JOEY KINCAID [facility] [id number] [facility] 2019-12-27 11:57:00 2019-12-27 12:45:00 Departed Emergency Room [facility] [id number] [facility] 2019-11-03 18:39:00 2019-11-03 21:18:00 Departed Emergency Room [facility] [id number] [facility] Results Test Description Test Time Test Comments Results Result Comments Source CHEST SINGLE (PORTABLE) 2020-03-12 13:10:00 [facility] [address] [place] [address] Patient Name: CHIRAG MCPHERSON MR #: [id number] : 1945 Age/Sex: 74/F Req #: [id number] Adm Physician: Ordered by: GIUSEPPE PULLIAM DO Report #: [id number] Location: ER Room/Bed: Procedure: [id number] DX/CHEST SINGLE (PORTABLE) Exam Date: Exam Time: REPORT STATUS: Signed TECHNIQUE: Frontal view of the chest. INDICATION: dizziness COMPARISON: 01/10/2020 DISCUSSION: Limited evaluation due to portable technique. Lines and hardware: None Heart and mediastinum: Stable mild cardiac Shonda and central vascular congestion. Lungs and pleura: Negative for focal consolidation, pleural effusion or pneumothorax. Prominent vascular markings are similar to prior exam. Soft tissues and bones: No acute abnormality. Stable advanced degenerative changes of the bilateral shoulder joints and acromio clavicular joints. IMPRESSION: Stable mild cardiomegaly and central vascular congestion which could relate to fluid overload. Negative for effusions. Negative for focal consolidation. Signed by: Paulo Samaniego MD on 03/12/2020 1:11 PM Dictated By: PAULO SAMANIEGO MD 10 Transcribed By: NUNU on 03/12/201310 COPY TO: GIUSEPPE PULLIAM DO CT BRAIN WO 2020-03-12 12:53:00 [place] [address] Patient Name: CHIRAG MCPHERSON MR #: [id number] : 1945 Age/Sex: 74/F Req #: [id number] Adm Physician: Ordered by: GIUSEPPE PULLIAM DO Report #: [id number] Location: ER Room/Bed: Procedure: [id number] CT/CT BRAIN WO Exam Date: Exam Time: REPORT STATUS: Signed EXAMINATION: Head CT HISTORY: 74 year old female with dizziness. COMPARISON: None. TECHNIQUE: Helical axial images of the head were obtained. Reformatted coronal and sagittal images from the axial data. Dose modulation, iterative reconstruction, and/or weight based adjustment of the mA/kV was utilized to reduce the radiation dose to as low as reasonably achievable. Image quality: Motion/streaking artifact limits the evaluation of the skull base and posterior cranial fossa. FINDINGS: Parenchyma: 1. Few scattered white matter hypodensities, most likely nonspecific chronic microvascular ischemic changes, within normal limits for age. Otherwise there are no areas of abnormal density in the brain parenchyma. 2. No mass or hemorrhage. No CT evidence of acute territorial vascular insult. Extra-axial spaces:No abnormal density. No extra-axial fluid collections Brain volume: Normal for age. Ventricles: No hydrocephalus or displacement. Arteries: No density suggestive of thrombus. Dural sinuses: No abnormal density. Foramen magnum: No mass, Chiari malformation, or basilar invagination. Sella: Partially empty, mostly CSF filled. Paranasal/mastoid sinuses: Imaged portions u nremarkable. Skull/Scalp: No lytic or blastic lesions. No fractures. IMPRESSION: 1. No acute intracranial hemorrhage or cortical infarcts. 2. Mild chronic microvascular ischemic changes. 3. 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 Signed by: Dr. Mary Kay Loco M.D. on 03/12/2020 12:55 PM Dictated By: MARY KAY LOCO MD 125 Transcribed By: NUNU on 03/12/20 1255 COPY TO: GIUSEPPE PULLIAM DO Blood hemoglobin measurement (moles/volume) 2020-01-15 04:55 :00 Test Item Hemoglobin (test code = 82308-3) 8.4 12.0-16.0 [facility] hematocrit (volume fraction)2020-01-15 04:55:00* Test Item Value Reference Range Interpretation Comments Hematocrit (test code = 4544-3) 26.1 34.2-44.1 [facility]LVIS AP 1-2 [id number] 12:55:00 [facility] [address] [place] [address] Patient Name: CHIRAG MCPHERSON MR #: [id number] : 1945 Age/Sex: 74/F Req #: [id number] Adm Physician: JOEY KINCAID MD Ordered by: JOEY KINCAID MD Report #: [id number] Location: PACU Room/Bed: PACU-1 Procedure: [id number] DX/PELVIS AP 1-2 VIEWS Exam Date: 01/14/20 [...] MD Fluoroscopic procedure less than one hour loskobtz3747-18-53 15:20:00* Test Item Value Reference Range Interpretation [...] complexity tests.Testing performed by [facility] [id number] [place], [place] [phone] Director: Carosn De La Rosa M.D.CLIA # [id number] [facility] automated count (number/volume)2020-01-10 14:47:00* Test Item Value Reference Range Interpretation Comments White Blood Count (test code = 6690-2) 11.30 4.8-10.8 [facility] erythrocytes automated count (number/volume)2020-01-10 14:47:00* Test Item Value Reference Range Interpretation Comments Red Blood Count (test code = 789-8) 3.48 3.6-5.1 [facility]land[facility] erythrocyte mean corpuscular nsvibj7177-54-81 14:47:00* Test Item Value Reference Range Interpretation Comments Mean Corpuscular Volume (test code = 787-2) 91.7 81-99 [facility]land[facility] erythrocyte mean corpuscular hemoglobin (mass per erythrocyte)2020-01-10 14:47:00* Test Item Value Reference Range Interpretation Comments Mean Corpuscular Hemoglobin (test code = 785-6) 30.2 28-32 [facility]land[facility] erythrocyte mean corpuscular hemoglobin concentration measurement (mass/volume)2020-01-10 14:47:00* Test Item Value Reference Range Interpretation Comments Mean Corpuscular Hemoglobin Concent (test code = 786-4) 32.9 31-35 [facility]landRDW RblDb-Hmq3020-16-19 14:47:00* Test Item Value Reference Range Interpretation Comments Red Cell Distribution Width (test code = 99139-4) 13.3 11.7 -14.4 [facility]land[facility] blood platelet count (count/volume)2020-01-10 14:47:00* Test Item Value Reference Range Interpretation Comments Platelet Count (test code = 777-3) 318 140-360 [facility]land[facility] blood segmented neutrophil count as percentage of total momramlzjf2663-57-43 14:47:00* Test Item Value Reference Range Interpretation Comments Neutrophils (%) (Auto) (test code = 77890-5) 74.9 38.7-80.0 [facility]land[facility] blood lymphocyte count as percentage ot total qrnetlmxyp4266-19-81 14:47:00* Test Item Value Reference Range Interpretation Comments Lymphocytes (%) (Auto) (test code = 736-9) 14.9 18.0-39.1 [facility]landAutcarolinas continuecare [facility] universityed blood monocyte count as percentage of total skuqpqekxd8865-26-69 14:47:00* Test Item Value Reference Range Interpretation Comments Monocytes (%) (Auto) (test code = 5905-5) 7.3 4.4-11.3 [facility]land[facility] blood eosinophil count as percentage of total pgbwfymthn1468-12-37 14:47:00* Test Item Value Reference Range Interpretation Comments Eosinophils (%) (Auto) (test code = 713-8) 1.4 0.0-6.0 [facility]landAutom[facility] blood basophil count as percentage of total sawxzenago8221-84-71 14:47:00* Test Item Value Reference Range Interpretation Comments Basophils (%) (Auto) (test code = 706-2) 0.8 0.0-1.0 [facility] PearlandFluoroscopic procedure less than one hour gokkiwye0223-52-75 14:47:00* Test Item Value Reference Range Interpretation Comments IM GRANULOCYTES % (test code = IM GRANULOCYTES %) 0.7 0.0- 1.0 [facility]land[facility] blood neutrophil count 2020-01-10 14:47:00* Test Item Value Reference Range Interpretation Comments Neutrophils # (Auto) (test code = 751-8) 8.5 2.1-6.9 [facility]land[facility] lymphocytes count (number/volume) 2020-01-10 14:47:00* Test Item Value Reference Range Interpretation Comments Lymphocytes # (Auto) (test code = 60741-0) 1.7 1.0-3.2 [facility]landBlood monocytes automated count (number/volume)2020-01-10 14:47:00* Test Item Value Reference Range Interpretation Comments Monocytes # (Auto) (test code = 742-7) 0.8 0.2-0.8 [facility]landAutomated blood eosinophil count 2020-01-10 14:47:00* Test Item Value Reference Range Interpretation Comments Eosinophils # (Auto) (test code = 711-2) 0.2 0.0-0.4 [facility]landAutomated blood basophil count (count/volume)2020-01-10 14:47:00* Test Item Value Reference Range Interpretation Comments Basophils # (Auto) (test code = 704-7) 0.1 0.0-0.1 [facility]landFluoroscopic procedure less than one hour gnimvnup1632-18-44 14:47:00* Test Item Value Reference Range Interpretation Comments Absolute Immature Granulocyte (auto (roverto t code = Absolute Immature Granulocyte (auto) 0.08 0-0.1 [facility] sodium measurement (moles/volume)2020-01-10 14:47:00* Test Item Value Reference Range Interpretation Comments Sodium Level (test code = 2951-2) 133 136-145 [facility] or plasma potassium measurement (moles/volume)2020-01-10 14:47:00* Test Item Value Reference Range Interpretation Comments Potassium Level (test code = 2823-3) 3.6 3.5-5.1 [facility] or plasma chloride measurement (moles/volume)2020-01-10 14:47:00* Test Item Value Reference Range Interpretation Comments Chloride Level (test code = 2075-0) 101 98-107 [facility]ererum or plasma carbon dioxide, total measurement (moles/volume)2020-01-10 14:47:00* Test Item Value Reference Range Interpretation Comments Carbon Dioxide Level (test code = 2028-9) 24 22-29 [facility]rum or plasma anion wgn9807-31-37 14:47:00* Test Item Value Reference Range Interpretation Comments Anion Gap (test code = 14146-7) 11.6 8-16 [facility] or plasma urea nitrogen measurement (mass/volume)2020-01-10 14:47:00* Test Item Value Reference Range Interpretation Comments Blood Urea Nitrogen (test code = 3094-0) 24 7-26 [facility]ere[facility] or plasma creatinine measurement (mass/volume)2020-01-10 14:47:00* Test Item Value Reference Range Interpretation Comments Creatinine (test code = 2160-0) 1.82 0.57-1.11 [facility]ererum or plasma urea nitrogen/creatinine mass lksgd1723-13-86 14:47:00* Test Item Value Reference Range Interpretation Comments BUN/Creatinine Ratio (test code = 3097-3) 13 6-25 [facility]landEstimated glomerular filtration rate (GFR) qikmkiygxpixc6189-68-91 14:47:00* Test Item Value Reference Range Interpretation Comments Estimat Glomerular Filtration Rate (test code = 323570996) 27 >60 Ranges were taken from the National Kidney Disease Education Program and the [facility] Kid[facility] Foundation literature.Reference ranges:60 or greater: Jsxyjo21-95 ( for 3 consecutive months): Chronic kidney disease 15 or less: Kidney failureCHI University Medical CenterGlucose atxsvwdxicb5437-09-48 14:47:00* Test Item Value Reference Range Interpretation Comments Glucose Level (test code = WNV6889) 90 74-118 [facility]ererum or plasma calcium measurement (mass/volume)2020-01-10 14:47:00* Test Item Value Reference Range Interpretation Comments Calcium Level (test code = 37064-9) 8.5 8.4-10.2 [facility]landCHEST 2 JZZKW6119-03-99 14:45:00 [facility] [address] [place] [address] Patient Name: CHIRAG MCPHERSON MR #: [id number] : 1945 Age/Sex: 74/F Req #: [id number] Adm Physician: Ordered by: JOEY KINCAID MD Report #: [id number] Location: OR Room/Bed: Procedure: [id number] DX/CHEST 2 VIEWS Exam Date: 01/10/20 Exam Time: 1414 REPORT STATUS: Signed EXAMINATION: CHEST 2 VIEW [...] 2:45 PM Dictated By: REANNA UNDERWOOD MD 144 Transcribed By: HUMBERTO MCGUIRE on 01/10/20 1445 COPY TO: JOEY KINCAID MD FECES OVA JTIGECJCD7926-02-44 14:11:00* Test Item Value Reference Range Interpretation Comments CONCENTRATE RESULT (test code = CONC) Final report () These results were obtained using wet preparation(s) andtrichrome stained smear. This test does not include testingfor Cryptosporidium parvum, Cyclospora, or Microsporidia. TRICHROME RESULT (test code = TRIC) 1141AG GIARDIA MXYAH7327-03-85 14:11:00* Test Item Value Reference Range Interpretation Comments AG GIARDIA FECES (test code = GIARDAG) Negative Negative Performed At: [address] [id number] Dupree MD Ph:[phone] 1141FECES OVA UEYXGUGFG9169-94-34 14:11:00* Test Item Value Reference Range Interpretation Comments CONCENTRATE RESULT (test code = CONC) Final report () These results were obtained using wet preparation(s) andtrichrome stained smear. This test does not include testingfor Cryptosporidium parvum, Cyclospora, or Microsporidia. TRICHROME RESULT (test code = TRIC) () No ova, cysts, or parasites seen.One negative specimen does not rule out the possibility ofa parasitic infection.Performed At: [facility] [employer] [id number] Dupree MD Ph:[phone] 1141AG GIARDIA IQODF0587-76-09 14:11:00* Test Item Value Reference Range Interpretation Comments AG GIARDIA FECES (test code = GIARDAG) Negative Negative Performed At: [address] [id number] Dupree MD Ph:[phone] 1141FECES OVA YQIDRCDYK5687-42-51 16:09:00* Test Item Value Reference Range Interpretation Comments CONCENTRATE RESULT (test code = CONC) TRICHROME RESULT (test code = TRIC) 1141AG GIARDIA [id number] 16:09:00* Test Item Value Reference Range Interpretation Comments AG GIARDIA FECES (test code = GIARDAG) Negative Negative Performed At: [facility] [address] [id number] Cody Dupree MD Ph:[phone]
[2020-03-12 14:36] LABS: CLARITY,URINE SL CLOUDY (CLEAR); COLOR,URINE YELLOW (YELLOW)
[2020-03-12 14:37] LABS: BILIRUBIN,URINE NEGATIVE (NEGATIVE); KETONES,URINE NEGATIVE (NEGATIVE); LEUKOCYTE ESTERASE ,URINE SMALL (NEGATIVE); NITRITE,URINE NEGATIVE (NEGATIVE); PROTEIN,URINE DIPSTICK 1+ (NEGATIVE); URINE UROBILINOGEN 0.2 mg/dL (0.2 - 1)
[2020-03-12 14:46] LABS: BACTERIA,URINE FEW /HPF; EPITHELIAL CELLS,URINE MODERATE /LPF; RENAL EPITHELIAL CELLS,URINE FEW
--- NOTE | 2020-03-12 14:58 | NUR ---
pt arrived to room 207 via wheelchair from ER. pt awake, alert, oriented, ambulatory, no s/s of distress. in stable condition.
[2020-03-12 14:59] VITALS: BP 134/79
--- NOTE | 2020-03-12 15:10 | Diagnostic Imaging Report ---
EXAM: CT Abdomen and Pelvis WITHOUT intravenous contrast INDICATION: Left flank pain COMPARISON: None. TECHNIQUE: Abdomen and pelvis were scanned utilizing a multidetector helical scanner from the lung base to the pubic symphysis without administration of IV contrast. Coronal and sagittal reformations were obtained. Routine technique was performed. IV CONTRAST: None ORAL CONTRAST: None COMPLICATIONS: None RADIATION DOSE: Total DLP: 835 mGy*cm Dose modulation, iterative reconstruction, and/or weight based adjustment of the mA/kV was utilized to reduce the radiation dose to as low as reasonably achievable. FINDINGS: LOWER THORAX: Basilar scarring is noted. HEPATOBILIARY: No focal hepatic lesions. No biliary ductal dilatation. The gallbladder appears unremarkable. SPLEEN: No splenomegaly. PANCREAS: No focal masses or ductal dilatation. ADRENALS: No adrenal nodules. KIDNEYS/URETERS: Negative for hydronephrosis or perinephric drainable fluid collection. There is a hypodense left upper lesion with internal fluid density of approximately 5 Hounsfield units measuring up to 2.5 cm consistent with a cortical cyst. Adjacent to this cyst there is a 2 mm interpolar calcification which could relate to a calcification adjacent to the cyst versus nonobstructing calculus. Otherwise negative for calculus. 7 cm hypodense lesion within the medial left lower pole is indeterminate although statistically also related to a cyst. Ureters are not dilated. Bilateral perinephric stranding is nonspecific. PELVIC ORGANS/BLADDER: Limited evaluation due to significant streak artifact from bilateral hip prostheses. Bladder is not well visualized. Uterus appears to be surgically absent. PERITONEUM / RETROPERITONEUM: No free air or fluid. Small fat-containing umbilical hernia is noted. LYMPH NODES: No lymphadenopathy. VESSELS: Negative for abdominal aortic aneurysm. Scattered atherosclerotic changes of the infrarenal abdominal aorta are noted. GI TRACT: Bowel loops are suboptimally evaluated due to lack of IV and oral contrast. No surrounding inflammatory changes are identified. Appendix is not visualized and may be surgically absent or significantly decompressed. No surrounding inflammatory changes are noted in the region. Distal colon is decompressed limiting evaluation. Rectum is obscured by significant streak artifact. Stomach is decompressed. BONES AND SOFT TISSUES: Negative for acute osseous abnormality. Advanced multilevel degenerative changes of the lumbar spine are noted. Bilateral hip prostheses are noted in proper alignment without evidence of proximal hardware malfunction. Pubic symphysis is not widened. IMPRESSION: Limited lack of IV and oral contrast. In addition limited evaluation of the pelvis due to significant streak artifact bilateral hip arthroplasties. 1. Focal 2 mm left interpolar nonobstructing calculus versus calcification of an adjacent 2.5 cm cortical cyst. Negative for hydronephrosis. Bladder is not well visualized. 2. Bilateral perinephric stranding is noted, likely due to scarring or chronic changes however given lack of comparison imaging acute infectious process is difficult to exclude. Correlate with urinalysis if clinically indicated. Signed by: Nahum Samaniego MD on 03/12/2020 3:07 PM
[2020-03-12] MEDS ORDERED: ACETAMINOPHEN 325 MG TAB PO STA (15:31)
[2020-03-12] MEDS: SODIUM CHLORIDE 0.9% 1000ML 1,000 ML IV SCH ×2 (15:36→21:34)
[2020-03-12] MEDS: CEFTRIAXONE SOD 1 GM/NS 50 ML 50 ML IV SCH (15:36)
[2020-03-12 15:41] VITALS: BP 134/79
[2020-03-12 16:15] VITALS: BP 134/79
[2020-03-12] MEDS ORDERED: POTASSIUM CHLORIDE 10MEQ EA PO ONE (17:30)
[2020-03-12] MEDS ORDERED: FUROSEMIDE INJ 10 MG/ML 4 ML VIAL IV ONE ×2 (17:30→19:30)
--- NOTE | 2020-03-12 18:05 | NUR ---
insertion of rodriguez completed with MADELIN Robin at bedside. pt tolerated well. about 50cc urine output noted.
[2020-03-12 18:14] LABS: THYROID STIMULATING HORMONE 1.114 uIU/mL (0.350-4.940)
[2020-03-12 18:31] LABS: CLARITY,URINE CLEAR (CLEAR); COLOR,URINE YELLOW (YELLOW); LEUKOCYTE ESTERASE ,URINE NEGATIVE (NEGATIVE); NITRITE,URINE NEGATIVE (NEGATIVE)
[2020-03-12 18:32] LABS: BILIRUBIN,URINE NEGATIVE (NEGATIVE); KETONES,URINE NEGATIVE (NEGATIVE); PROTEIN,URINE DIPSTICK 1+ (NEGATIVE); URINE UROBILINOGEN 0.2 mg/dL (0.2 - 1)
[2020-03-12 18:44] LABS: BACTERIA,URINE MODERATE /HPF; EPITHELIAL CELLS,URINE FEW /LPF
--- NOTE | 2020-03-12 19:00 | NUR ---
RECEIVED PATIENT IN BEDSIDE SHIFT REPORT. PATIENT RESTING IN BED AT THIS TIME. NO PAIN REPORTED. NO S&S OF DISTRESS NOTED. GIL DRAINING CLEAR, YELLOW URINE TO GRAVITY. L AC 20G RUNNING NS @ 100ML/HR. BED LOCKED IN LOWEST POSITION, SIDE RAILS UPX2, CALL LIGHT IN REACH.
[2020-03-12 20:00] VITALS: BP 124/72
[2020-03-12 20:11] LABS: CREATINE KINASE MB 6.5 ng/mL (0-5.0)
[2020-03-13] VITALS (7 sets, daily range): BP systolic 111–136; BP diastolic 64–79
--- NOTE | 2020-03-13 00:25 | Consultation ---
DATE OF CONSULTATION: Nephrology Consultation REASON FOR CONSULTATION: Hyponatremia and renal insufficiency. HISTORY OF PRESENT ILLNESS: Ms. Nunes is a 74-year-old female, who presented here is not really certain what her chief complaint was, and there is no really available history, it was just reported the patient was not feeling well, other than that there is no other history available. I am being asked to see her because her laboratory workup BUN and creatinine were 20 and 1.8 respectively, and her serum sodium was 122. I do not have any old lab values on this patient and back in 2016, she did have a creatinine of 1.15 on admission, that went down to 0.9. The patient states that she does have a history of kidney stones in the past. PAST MEDICAL HISTORY: Hypertension, depression, and gastroesophageal reflux disease. PAST SURGICAL HISTORY: Hysterectomy, hip replacement surgery, appendectomy. MEDICINES: Right now her list of medicines is not available. REVIEW OF SYSTEMS: As per HPI. She is actually in no distress right now. PHYSICAL EXAMINATION: VITAL SIGNS: Blood pressure 134/79, pulse 75, and afebrile. GENERAL: The patient in no acute distress. HEENT: No increased JVD. CARDIOVASCULAR: Regular rate and rhythm. LUNGS: Clear to auscultation bilaterally. ABDOMEN: Positive bowel sounds. Nontender and nondistended. EXTREMITIES: No edema, cyanosis, or clubbing. LABORATORY RESULTS: Sodium 122, potassium 3.4, chloride 91, bicarb 17. BUN and creatinine 20 and 1.8 respectively. Hemoglobin and hematocrit 10 and 30 respectively. Urinalysis shows 1+ protein and 6 to 10 white cells and few bacteria. IMPRESSION AND PLAN: 1. Hyponatremia. 2. Hypertension. 3. Renal insufficiency. 4. Questionable chronic kidney disease. 5. Questionable acute kidney injury. 6. Possible urinary tract infection. PLAN: At the present time, the patient's UA suggestive of a urinary tract infection, but it is original urine sample be sent for a culture and we do not have any old serum creatinine values. I do not know what her baseline renal function is these days, but I will go ahead and give NSAIDs, MUNOZ-2 inhibitors, and IV contrast should be avoided; even her list of medicines I am not aware of it at this time. We will give her normal saline for 1 L to see this helps with her renal function. Her potassium has been replaced. She is hyponatremic. I will go ahead and order serum and urine osmolality and TSH, and I will order one dose of Lasix promote a hypotonic diuresis, we may ultimately raise the serum sodium. I have ordered a renal ultrasound just to tell us about the echogenicity of the kidney to see if there is any chronicity to her renal insufficiency. I will nonetheless place her on a water restriction of 800 mL a day. The water restrictions only for water and ice tea, and does not include other beverages like Sprite as much of those that she wants. Thank you again for allowing me to participate in the care of this patient. MD PETRA Thayer/KRISS /[id number]
[2020-03-13 05:55] LABS: BASOPHILS # (AUTO) 0.1 (0.0-0.1); BASOPHILS % 0.8 % (0.0-1.0); EOSINOPHILS # (AUTO) 0.3 (0.0-0.4); EOSINOPHILS % 3.2 % (0.0-6.0); HEMATOCRIT 27.3 % (34.2-44.1); HEMOGLOBIN 9.6 g/dL (12.0-16.0); LYMPHOCYTES # (AUTO) 1.7 (1.0-3.2); LYMPHOCYTES % 19.1 % (18.0-39.1); MEAN CORPUSCULAR HEMOGLOBIN 30.6 pg (28-32); MEAN CORPUSCULAR HGB CONC 35.2 g/dL (31-35); MEAN CORPUSCULAR VOLUME 86.9 fL (81-99); MONOCYTES # (AUTO) 0.7 (0.2-0.8); MONOCYTES % 7.1 % (4.4-11.3); NEUTROPHILS # (AUTO) 6.3 (2.1-6.9); PLATELET COUNT 298 x10e3/uL (140-360); RED BLOOD COUNT 3.14 x10e6/uL (3.6-5.1); RED CELL DISTRIBUTION WIDTH 13.4 % (11.7-14.4)
[2020-03-13 06:27] LABS: CREATINE KINASE 131 IU/L (29-168)
[2020-03-13 06:44] LABS: ALBUMIN 3.1 g/dL (3.5-5.0); ALBUMIN/GLOBULIN RATIO 1.1 (0.8-2.0); ANION GAP 16.8 mmol/L (8-16); CREATININE, SERUM 1.88 mg/dL (0.57-1.11); POTASSIUM 3.8 mmol/L (3.5-5.1)
[2020-03-13] MEDS: PREDNISONE 5 MG TAB PO SCH (09:00)
[2020-03-13] MEDS: PANTOPRAZOLE SOD 40 MG TABEC PO SCH (09:00)
[2020-03-13] MEDS: HYDROXYCHLOROQUINE SULFATE 200 MG TAB PO SCH (09:00)
--- NOTE | 2020-03-13 10:22 | Diagnostic Imaging Report ---
EXAM: Renal Ultrasound INDICATION: ^RENAL FAILURE COMPARISON: CT abdomen and pelvis of 03/12/2020 TECHNIQUE: Transverse and longitudinal images of the kidneys and bladder were obtained. FINDINGS: Right Kidney: Length: 10.4 cm Appearance: Normal echogenicity. Collecting system: No hydronephrosis Stones: None Cyst/Mass: None Left Kidney: Length: 10.5 cm Appearance: Normal echogenicity. Collecting system: No hydronephrosis Stones: None Cyst/Mass: Exophytic 2.0 x 2.0 x 2.3 cm mid pole anechoic simple cyst. Bladder: Chand catheter in the decompressed bladder. IMPRESSION: No hydronephrosis or sonographically visible renal calculi. Left mid pole anechoic simple cyst. Signed by: Randa Bravo MD on 03/13/2020 10:19 AM
--- NOTE | 2020-03-13 13:17 | NUR ---
visited the pt , asian studies professor initiated relationship of support and prayer , pt expressed more peace chaplain [place]
[2020-03-13] MEDS: CEFTRIAXONE SOD 1 GM/NS 50 ML 50 ML IV SCH (13:46)
--- NOTE | 2020-03-13 18:09 | History and Physical ---
PRIMARY CARE PHYSICIAN: Dr. Allan Grady. CHIEF COMPLAINT: Generalized weakness, dizziness, and burning sensation with urination. HISTORY OF PRESENT ILLNESS: This is a 74-year-old female, getting history from the patient through visual stylist. The patient is stating that she is just not feeling well, generally weak. The patient is stating that she is having increase in urination and some burning sensation. The patient came to the emergency room for an evaluation. In the emergency room, the patient was found to have a low sodium level of 122 with potassium of 3.4. BUN and creatinine of 20 and 1.8 respectively. Her home list of medication is not reliable. The patient is otherwise stable though. She did not have any significant chest pain or shortness of breath. She is on hydroxychloroquine and Arava along with enalapril and prednisone for her rheumatoid arthritis. The patient is otherwise stable. No chest pain or shortness of breath. PAST MEDICAL HISTORY: Depression, anxiety disorder, rheumatoid arthritis, reflux, and history of hypertension. SURGICAL HISTORY: The patient has hysterectomy, appendectomy, and hip replacement surgery. SOCIAL HISTORY: The patient does not smoke or use alcohol. No regular drugs. ALLERGIES: NO KNOWN ALLERGIES. HOME MEDICATIONS: The patient is on, 1. Lexapro. 2. Hydroxychloroquine. 3. Arava. 4. Omeprazole. 5. Prednisone. 6. Enalapril. PHYSICAL EXAMINATION: VITAL SIGNS: Temperature is 98, blood pressure 119/56, pulse rate 72, and respirations 18. GENERAL: The patient is comfortable. She is not in any distress. HEENT: Normocephalic and atraumatic. She is anicteric. NECK: Supple grossly. PULMONARY: Diminished breath sounds without any wheezing or rales. CARDIOVASCULAR: S1, S2. Regular rate and rhythm. ABDOMEN: Soft, otherwise unremarkable. EXTREMITIES: No cyanosis or edema. NEUROLOGIC: No gross focal deficit. LABORATORY DATA: Sodium was 122, potassium 3.4, chloride 91, bicarb 17, BUN 20, creatinine 1.8, and glucose 102. Serum osmolality is 248. TSH is 1.1. WBC is 9.8, hemoglobin 10.5, hematocrit 30, and platelet is 350. Urinalysis, 1+ protein with moderate bacteria. Microbiology, urine culture is pending. IMAGING DATA: Renal ultrasound showed no hydronephrosis or renal calculi. Left mid pole simple cyst. CT of abdomen and pelvis that was done showed bilateral perinephric stranding noted likely due to scarring or chronic changes. No contrast on the CT scan. Chest x-ray otherwise unremarkable. A brain CT scan showed no acute finding. IMPRESSION: 1. Generalized weakness, could be secondary to hyponatremia and hypokalemia. The patient's home medication did not show any medication that could have cause the low sodium or potassium other than possible Lexapro and Arava for her depression and rheumatoid arthritis. 2. Questionable urinary tract infection. 3. Possible chronic kidney failure, exacerbated by possible dehydration. PLAN: Continue with home medication except for Lexapro. No Arava for now. Continue with hydroxychloroquine. Continue antibiotics. Rocephin 1 g daily. Aspirin. We will monitor the patient closely. The patient did receive potassium and furosemide. We will monitor the patient's status. Repeat lab work in the morning. MD YUMIKO Lees/KRISS /[id number]
[2020-03-14] VITALS (9 sets, daily range): BP systolic 118–148; BP diastolic 64–79
[2020-03-14 06:32] LABS: ANION GAP 14.6 mmol/L (8-16); CALCIUM 8.1 mg/dL (8.4-10.2); CREATININE, SERUM 1.6 mg/dL (0.57-1.11); POTASSIUM 3.6 mmol/L (3.5-5.1)
[2020-03-14] MEDS: PANTOPRAZOLE SOD 40 MG TABEC PO SCH (08:47)
[2020-03-14] MEDS: PREDNISONE 5 MG TAB PO SCH (08:47)
[2020-03-14] MEDS: HYDROXYCHLOROQUINE SULFATE 200 MG TAB PO SCH (08:47)
[2020-03-14] MEDS: CEFTRIAXONE SOD 1 GM/NS 50 ML 50 ML IV SCH (15:04)
[2020-03-14] MEDS: SENNOSIDES 8.6 MG TAB PO SCH (18:43)
--- NOTE | 2020-03-14 18:55 | NUR ---
Patient complaints of itching all over the body. Noted no rashes or redness around the body. Will notify Dr. John.
--- NOTE | 2020-03-14 19:40 | NUR ---
Spoke with Dr. enrique. Verbal order to give Claritin 10 mg daily and Atarax 25 mg Q6 PRN.
[2020-03-14] MEDS ORDERED: HYDROXYZINE HCL 25 MG TAB PO PRN (19:45)
[2020-03-14] MEDS: LORATADINE 10 MG TAB PO SCH (20:05)
[2020-03-15] VITALS (13 sets, daily range): BP systolic 128–155; BP diastolic 68–89
--- NOTE | 2020-03-15 01:41 | NUR ---
MD LUNA ON FLOOR ROUNDING ON PATIENT, UPDATED VERBALLY WITH PATIENT DX, AND REASON FOR GIL INSERTION , MD ADVISED 500CC INITIALLY OBTAINED AFTER INSERTION, PATIENT REMAINS AFEBRILE, CONTINUES TO C/O DIZZINESS AND WEAKNESS
--- NOTE | 2020-03-15 02:15 | Consultation ---
DATE OF CONSULTATION: 03/14/2020 Urology Consultation REASON FOR CONSULTATION: Urinary retention. HISTORY OF PRESENT ILLNESS: Artemio Nunes is a 74-year-old woman, who was admitted for dizziness. The patient was evaluated and found to be in urinary retention for 500 mL upon placement of Chand catheter. Urological consultation was subsequently sought. The patient is unclear whether she has had a previous urological history or has never seen a urologist, it does not seems so. The patient denies problems with urinary tract infections. It sounds like she has had history of renal insufficiency. PAST MEDICAL AND SURGICAL HISTORY: 1. Hypertension. 2. Depression. 3. Gastroesophageal reflux disease. 4. Status post hysterectomy. 5. Status post hip replacement surgery. 6. Status post appendectomy. SOCIAL HISTORY: The patient denies smoking, ethanol, or drug use. ALLERGIES: NONE KNOWN. CURRENT MEDICATIONS: Please refer to the MAR. REVIEW OF SYSTEMS: As discussed as above in the history of present illness and past medical history, otherwise negative for all systems. PHYSICAL EXAMINATION: GENERAL: Healthy-appearing woman, lying in bed, in no apparent distress. VITAL SIGNS: She is currently afebrile. Vital signs are currently stable. ABDOMEN: Soft, nondistended, nontender without costovertebral angle tenderness. Kidneys are not palpable without hepatosplenomegaly. No obvious evidence of hernia. The patient is obese. GENITOURINARY: The patient has a Chand catheter in place, draining relatively clear urine out. For the remaining physical examination systems, please refer to the admission history and physical on the chart. LABORATORY STUDIES: Urine culture is negative. White blood cell count is 9130, hemoglobin 9.6, and platelets 298,000. The patient's sodium is low at 129. Her creatinine is elevated at 1.6. Her calcium is low at 8.1. Urinalysis, significant for 6 to 10 wbc's and moderate bacteria. She is COVID negative. CT scan of the abdomen and pelvis was performed with a stone protocol. There is a left renal cyst and possible small left-sided stone noted on CT. Fat containing umbilical hernia is noted. ASSESSMENT: 1. Urinary retention for 500 mL. 2. Chand catheter in situ. 3. Chronic renal insufficiency. 4. Obesity. 5. Anemia. 6. Hyponatremia. 7. Hypocalcemia. 8. Possible urinary tract infection, but culture was negative. 9. Left renal cyst. 10. Small left renal stone. 11. Umbilical hernia. PLAN: 1. Leave the Chand catheter in place. 2. Hematological and electrolyte abnormalities per primary team. 3. The patient needs to follow up for urodynamic study to determine whether more chronic Chand catheterization is warranted. 4. We will follow up the patient long-term for her stone and cyst. Thank you much for involving us in the care of your patient. We will be happy to follow her along with you as well as an outpatient. Lee MD KVNG Araiza/LINNEAL /[id number]
[2020-03-15 06:34] LABS: BASOPHILS # (AUTO) 0.1 (0.0-0.1); BASOPHILS % 0.7 % (0.0-1.0); EOSINOPHILS # (AUTO) 0.3 (0.0-0.4); EOSINOPHILS % 2.9 % (0.0-6.0); HEMATOCRIT 28.9 % (34.2-44.1); HEMOGLOBIN 9.8 g/dL (12.0-16.0); LYMPHOCYTES # (AUTO) 2.1 (1.0-3.2); LYMPHOCYTES % 21.1 % (18.0-39.1); MEAN CORPUSCULAR HEMOGLOBIN 29.9 pg (28-32); MEAN CORPUSCULAR HGB CONC 33.9 g/dL (31-35); MEAN CORPUSCULAR VOLUME 88.1 fL (81-99); MONOCYTES # (AUTO) 0.8 (0.2-0.8); MONOCYTES % 7.9 % (4.4-11.3); NEUTROPHILS # (AUTO) 6.7 (2.1-6.9); NEUTROPHILS % 66.4 % (38.7-80.0); PLATELET COUNT 330 x10e3/uL (140-360); RED BLOOD COUNT 3.28 x10e6/uL (3.6-5.1); RED CELL DISTRIBUTION WIDTH 13.6 % (11.7-14.4)
[2020-03-15 08:18] LABS: ANION GAP 16.6 mmol/L (8-16); CALCIUM 8.2 mg/dL (8.4-10.2); CREATININE, SERUM 1.44 mg/dL (0.57-1.11); POTASSIUM 3.6 mmol/L (3.5-5.1)
[2020-03-15] MEDS: AMLODIPINE BESYLATE 5 MG TAB PO SCH (08:28)
[2020-03-15] MEDS: LORATADINE 10 MG TAB PO SCH (08:28)
[2020-03-15] MEDS: HYDROXYCHLOROQUINE SULFATE 200 MG TAB PO SCH (08:28)
[2020-03-15] MEDS: PREDNISONE 5 MG TAB PO SCH (08:28)
[2020-03-15] MEDS: PANTOPRAZOLE SOD 40 MG TABEC PO SCH (08:29)
[2020-03-15] MEDS: SENNOSIDES 8.6 MG TAB PO SCH ×2 (08:36→15:55)
[2020-03-16 04:53] VITALS: BP 138/71
[2020-03-16 04:54] VITALS: BP 138/71
[2020-03-16 07:46] LABS: ANION GAP 15.9 mmol/L (8-16); CREATININE, SERUM 1.43 mg/dL (0.57-1.11); POTASSIUM 3.9 mmol/L (3.5-5.1)
[2020-03-16 07:58] VITALS: BP 145/65
[2020-03-16] MEDS ORDERED: ESCITALOPRAM OXALATE 10 MG TAB PO SCH (09:00)
[2020-03-16 09:15] VITALS: BP 145/65
[2020-03-16] MEDS ORDERED: SENNA-S TABLET PO SCH (09:15)
[2020-03-16] MEDS ORDERED: MAGNESIUM HYDROXIDE 30 ML UDC PO PRN (09:15)
[2020-03-16] MEDS ORDERED: BISACODYL 5 MG TAB EC PO PRN (09:15)
[2020-03-16] MEDS ORDERED: BISACODYL 10 MG SUPP PR PRN (09:15)
[2020-03-16] MEDS ORDERED: BISACODYL 5 MG TAB EC PO ONE (10:15)
[2020-03-16] MEDS: PANTOPRAZOLE SOD 40 MG TABEC PO SCH (11:00)
[2020-03-16] MEDS: AMLODIPINE BESYLATE 5 MG TAB PO SCH (11:00)
[2020-03-16] MEDS: PREDNISONE 5 MG TAB PO SCH (11:00)
[2020-03-16] MEDS: LORATADINE 10 MG TAB PO SCH (11:00)
[2020-03-16] MEDS: HYDROXYCHLOROQUINE SULFATE 200 MG TAB PO SCH (11:00)
--- NOTE | 2020-03-16 11:45 | NUR ---
Discharge instructions and rodriguez teaching done with the patient , using a theater usher via language line. The patient verbalized understanding. SHe was given a leg bag for home. IV was removed with tip intact. Prescriptions were given.
--- NOTE | 2020-03-17 02:47 | Discharge Summary ---
PRIMARY CARE PHYSICIAN: Dr. Allan Grady. PIANO AND ORGAN REFINISHER: 1. Dr. Jay Jay Lazo. 2. Dr. Lee Araiza. FINAL DIAGNOSIS: 1. Urinary retention associated with history of hysterectomy previously. Neurogenic urinary bladder most likely structural. 2. Urinary tract infection. 3. Hyponatremia secondary to the above, resolved. Sodium level from 122 to 135. Chronic kidney disease. 4. Obesity. 5. Chronic kidney disease. DISCHARGE MEDICATIONS: 1. Stop the enalapril. 2. Senna S1 tablet b.i.d. 3. Cipro 500 mg twice a day for 7 days. 4. Norvasc 5 mg daily. The patient will resume her other usual home medication. The patient is a 74-year-old female with rheumatoid arthritis on multiple medication. She has also has hypertension apparently came in because of increasing fatigue. The patient's sodium level was 122, noticed that the patient had urinary retention, her creatinine was 1.88. The patient has a Chand catheter placed. Creatinine today is 1.43 and sodium level was 135. The patient is stable. Instructions given. Chand catheter placement. The patient was seen by Dr. Lee Araiza. The patient will follow up with Dr. Lee Araiza outpatient for urodynamic study. The patient will be discharged home with a Chand catheter. All instructions given. I also communicated with the patient's daughter as well regarding instruction. DISCHARGE MEDICATIONS: As above. ACTIVITY: As tolerated. DIET: Renal diet. Stable otherwise. IMAGING TESTS: Including renal ultrasound, abdominal pelvic CT without contrast, chest x-ray and brain CT, all pretty much no acute finding. The patient is otherwise stable. Discharge home today and follow up closely. MD YUMIKO Lees/LINNEAL /[id number]
== END 2020-03-16 13:06 | disposition home or self-care (01) | DRG 690 ==
LOC: ER 10:50 → ERHOLD 12:36 → MED/SURG2 14:55
PROVIDERS: ADMIT Internal Medicine; ATTEND Internal Medicine
DX: N39.0 Urinary tract infection, site not specified (principal); E87.1 Hypo-osmolality and hyponatremia; N17.9 Acute kidney failure, unspecified; I12.9 Hypertensive chronic kidney disease with stage 1 through stage 4 chronic kidney disease, or unspecified chronic kidney disease; N18.9 Chronic kidney disease, unspecified; N31.9 Neuromuscular dysfunction of bladder, unspecified; E83.51 Hypocalcemia; E66.9 Obesity, unspecified; Z68.35 Body mass index [BMI] 35.0-35.9, adult; R33.9 Retention of urine, unspecified; N28.1 Cyst of kidney, acquired; N20.0 Calculus of kidney; K42.9 Umbilical hernia without obstruction or gangrene; E87.6 Hypokalemia; E86.0 Dehydration
CPT/HCPCS: 36415; 70450; 71045; 74176; 76770; 80048; 80053; 81001; 82550; 82553; 82947; 83930; 83935; 84295; 84443; 84484; 84520; 85025; 87086; 93005; 99284; J0696; J1940; J3410; J7030; J7512; U0002

== ENCOUNTER → 2020-11-06 | Day surgery (SDC) | payer MEDICARE ==
[2020-11-04 09:47] LABS: BASOPHILS # (AUTO) 0.1 (0.0-0.1); BASOPHILS % 0.9 % (0.0-1.0); EOSINOPHILS # (AUTO) 0.2 (0.0-0.4); EOSINOPHILS % 2.8 % (0.0-6.0); HEMATOCRIT 32.1 % (34.2-44.1); HEMOGLOBIN 10.2 g/dL (12.0-16.0); LYMPHOCYTES # (AUTO) 1.9 (1.0-3.2); LYMPHOCYTES % 25.7 % (18.0-39.1); MEAN CORPUSCULAR HEMOGLOBIN 29.5 pg (28-32); MEAN CORPUSCULAR HGB CONC 31.8 g/dL (31-35); MEAN CORPUSCULAR VOLUME 92.8 fL (81-99); MONOCYTES # (AUTO) 0.8 (0.2-0.8); MONOCYTES % 10.9 % (4.4-11.3); NEUTROPHILS # (AUTO) 4.4 (2.1-6.9); NEUTROPHILS % 59.3 % (38.7-80.0); PLATELET COUNT 233 x10e3/uL (140-360); RED BLOOD COUNT 3.46 x10e6/uL (3.6-5.1)
[2020-11-04 10:05] LABS: ANION GAP 12.2 mmol/L (8-16); CALCIUM 8.5 mg/dL (8.4-10.2); CREATININE, SERUM 1.65 mg/dL (0.57-1.11); POTASSIUM 4.2 mmol/L (3.5-5.1)
[~2020-11-06] MED LIST changes: +B&O 60MG R/S 60 MG SUPP PR ONE; +CARDURA2 MG PO; +GENTAMICIN 80MG/NS 100 ML 200 ML IV ONE; +GLYCOPYRROLATE INJ 0.2 MG/ML VIAL ONE; +IOPAMIDOL 300MG/ML 50ML INFUS..BTL IV ONE; +LEVOFLOXACIN 500MG/D5W 100ML 100 ML IV ONE; +LIDOCAINE HCL 2% LOCAL INJ 5 ML SDV VIAL INJ ONE; +POVIDONE IODINE 0.05% 0.05 % ML PO ONE; +PROPOFOL IV EMULSION 10 MG/ML 20 ML VIAL ONE; +SEVOFLURANE INHAL SOLN 250 ML PEN BTL ONE; +VASOTEC10 M1 PO
[2020-11-06 13:03] VITALS: BP 163/88
== END | disposition home or self-care (01) ==
LOC: OR 09:45
PROVIDERS: ATTEND Urology
DX: N30.10 Interstitial cystitis (chronic) without hematuria (principal); N20.0 Calculus of kidney; N81.10 Cystocele, unspecified; N81.6 Rectocele; N95.2 Postmenopausal atrophic vaginitis; N32.89 Other specified disorders of bladder; I45.10 Unspecified right bundle-branch block; I10 Essential (primary) hypertension; K21.9 Gastro-esophageal reflux disease without esophagitis; F32.9 Major depressive disorder, single episode, unspecified; Z01.810 Encounter for preprocedural cardiovascular examination; Z01.812 Encounter for preprocedural laboratory examination; Z20.822 Contact with and (suspected) exposure to COVID-19
CPT/HCPCS: 36415; 52260; 74420; 80048; 85025; 93005; C1758; J1580; J1956; J2001; J2704; Q9967; U0002

== ENCOUNTER 2022-06-01 14:11 | Emergency (ER) | payer MEDICARE ==
[~2022-06-01] VITALS: Ht 157.5 cm; Wt 95.3 kg
[~2022-06-01 14:11] MED LIST changes: -B&O 60MG R/S 60 MG SUPP PR ONE; -GENTAMICIN 80MG/NS 100 ML 200 ML IV ONE; -GLYCOPYRROLATE INJ 0.2 MG/ML VIAL ONE; -IOPAMIDOL 300MG/ML 50ML INFUS..BTL IV ONE; -LEVOFLOXACIN 500MG/D5W 100ML 100 ML IV ONE; -LIDOCAINE HCL 2% LOCAL INJ 5 ML SDV VIAL INJ ONE; -POVIDONE IODINE 0.05% 0.05 % ML PO ONE; -PROPOFOL IV EMULSION 10 MG/ML 20 ML VIAL ONE; -SEVOFLURANE INHAL SOLN 250 ML PEN BTL ONE
[2022-06-01] MEDS ORDERED: TRAMADOL HCL 50 MG TAB PO ONE (15:30)
[2022-06-01] MEDS ORDERED: ACETAMINOPHEN 325 MG TAB PO ONE (15:30)
== END 2022-06-01 16:31 | disposition home or self-care (01) ==
LOC: ER 15:17
DX: M54.2 Cervicalgia (principal); M54.6 Pain in thoracic spine; M79.18 Myalgia, other site; I10 Essential (primary) hypertension; M06.9 Rheumatoid arthritis, unspecified; K21.9 Gastro-esophageal reflux disease without esophagitis; Z87.442 Personal history of urinary calculi
CPT/HCPCS: 99283